=== PATIENT | male | born 1955 | race Caucasian/White ===

== ENCOUNTER 2017-04-12 07:21 | Emergency (ER) | payer OTHER ==
[2017-04-12] MEDS ORDERED: HYDROmorphone 2 MG/ML Syringe IM ONE (07:58)
[2017-04-12] MEDS ORDERED: HYDROmorphone 2 MG/ML Syringe ONE (07:59)
--- NOTE | 2017-04-12 08:05 | EDM.PDOC ---
ED HPI GENERAL MEDICAL PROBLEM - General Stated Complaint: INJURED KNEE Time Seen by Provider: 04/12/17 07:30 Source of Information: Reports: Patient History Limitations: Reports: No Limitations - History of Present Illness INITIAL COMMENTS - FREE TEXT/NARRATIVE: According to patient he claims that yesterday afternoon he was at the [employer] visiting his mother who is legally blind. She was tripping and loosing balance, pt tried to stop her fall and he landed on his left knee and hurt his knee. He was able to walk on it and went home and iced it. When he woke up in the morning he noticed swelling of his left knee and more stiffness. Rates his pain at 10/10.Hurts to walk, but can weight bear. He claims the pain is standing and burning type in the anterior knee. No locking of the knee. No other complaints. Pt take Xarelto and Aspirin. Onset Date: 04/11/17 Onset Time: 12:00 Duration: Getting Worse Location: Reports: Other (left knee) Quality: Reports: Ache, Burning Severity: Severe Improves with: Reports: Cold Therapy, Immobilization Worsens with: Reports: Movement Associated Symptoms: Denies: Confusion, Chest Pain, Headaches, Loss of Appetite , Nausea/Vomiting, Rash, Shortness of Breath - Related Data Allergies Allergy/AdvReac Type Severity Reaction Status Date / Time No Known Allergies Allergy Verified 04/12/17 08:17 ED ROS GENERAL - Review of Systems Review Of Systems: See Below Constitutional: Denies: Fever, Chills HEENT: Denies: Rhinitis, Sinus Problem Respiratory: Denies: Cough, Sputum Cardiovascular: Denies: Chest Pain, Lightheadedness GI/Abdominal: Denies: Nausea, Vomiting : Denies: Dysuria, Flank Pain Musculoskeletal: Reports: Joint Pain, Joint Swelling. Denies: Back Pain, Muscle Pain Skin: Reports: Bruising. Denies: Pruritis, Rash Neurological: Denies: Headache, Numbness, Paresthesia ED EXAM, GENERAL - Physical Exam Exam: See Below Exam Limited By: No Limitations General Appearance: Alert, WD/WN, No Apparent Distress Eye Exam: Bilateral Eye: EOMI, PERRL Ears: Normal External Exam, Normal Canal, Hearing Grossly Normal, Normal TMs Nose: Normal Inspection, Normal Mucosa, No Blood Throat/Mouth: Normal Inspection, Normal Lips, Normal Teeth, Normal Gums, Normal Oropharynx, Normal Voice, No Airway Compromise Head: Atraumatic, Normocephalic Neck: Normal Inspection, Supple, Non-Tender, Full Range of Motion Respiratory/Chest: No Respiratory Distress, Lungs Clear, Normal Breath Sounds, No Accessory Muscle Use, Chest Non-Tender Cardiovascular: Normal Peripheral Pulses, Regular Rate, Rhythm, No Edema, No Gallop, No JVD, No Murmur, No Rub Extremities: Other (Left knee: there is superficial skin bruising of the knee over the patella, there is burising of the skin all around patella and over the lateral asect of theknee and the distal aspect of the knee. There is lot of adipose tissue over lapping around the knee fom obesity. Skin is tense. Pt is very tender to skin palpation around the knee.Good FLexion an extension of the knee. Able to weight jose eduardo and walk with minimal discomfort. Tenderness is more with palpation.) Course - Vital Signs Text/Narrative:: Pt has developed a large skin and soft tissue bleed from the fall, which is secondary to his Aspirin and xarelto. His Knee xray appears normal other than severe degenerative changes, there is questionable superior pole of patellar osteophytic fracture, but most of patient tenderness is in the patellar ligament region distally. I have empirically placed patient in knee splint.for now until final radiology read is available. The bruising has stretched the skin and causing the burning and stinging pain in the knee. I have reassured patient , advised intermittent cold for 10-15 minutes every 2-3 hrs. Vicodin 1-2 tablet every 6 hrs as needed. Vicodin can cause constipation advised stool softeners daily. the bruise will spread around the knee and also leg and might turn the leg black and blue in the next week. The bruise should resolve in 2-3 wks time and pain should gradually improve. He will need evaluation for his severe osteoarthritis, might be candidate for replacement. Advised to followup in clinic on friday. - Orders/Labs/Meds Orders: Active Orders 24 hr Category Date Time Status Knee 3V Lt [CR] Stat Exams 04/12/17 07:56 Ordered Meds: Medications Discontinued Medications Generic Name Dose Route Start Last Admin Trade Name Freq PRN Reason Stop Dose Admin Hydromorphone HCl Confirm 04/12/17 07:59 04/12/17 08:13 Dilaudid Administered 04/12/17 08:00 2 mg Dose Administration 2 mg .ROUTE .STK-MED ONE Hydromorphone HCl 1 mg 04/12/17 07:58 Dilaudid IM 04/12/17 07:59 ONETIME ONE Departure - Departure Time of Disposition: 08:40 Disposition: Home, Self-Care 01 Clinical Impression: Left knee injury - Discharge Information Additional Instructions: Pt has developed a large skin and soft tissue bleed from the fall, which is secondary to his Aspirin and xarelto. His Knee xray appears normal other than severe degenerative changes, there is questionable superior pole of patellar osteophytic fracture, but most of patient tenderness is in the patellar ligament region distally. I have empirically placed patient in knee splint.for now until final radiology read is available. The bruising has stretched the skin and causing the burning and stinging pain in the knee. I have reassured patient , advised intermittent cold for 10-15 minutes every 2-3 hrs. Vicodin 1-2 tablet every 6 hrs as needed. Vicodin can cause constipation advised stool softeners daily. the bruise will spread around the knee and also leg and might turn the leg black and blue in the next week. The bruise should resolve in 2-3 wks time and pain should gradually improve. He will need evaluation for his sevee osteoarthritis, might be candidate for replacement. Advised to followup in clinic on friday. I - Problem List & Annotations (1) Left knee injury SNOMED Code(s): 071155540 Code(s): S89.92XA - UNSPECIFIED INJURY OF LEFT LOWER LEG, INITIAL ENCOUNTER Status: Acute Current Visit: Yes - Problem List Review Problem List Initiated/Reviewed/Updated: Yes - My Orders Last 24 Hours: My Active Orders 04/12/17 07:56 Knee 3V Lt [CR] Stat - Assessment/Plan Last 24 Hours: My Active Orders 04/12/17 07:56 Knee 3V Lt [CR] Stat Assessment:: Left knee injury with bruising with questionable superior pole of patellar osteophytic fracture Plan: Pt has developed a large skin and soft tissue bleed from the fall, which is secondary to his Aspirin and xarelto. His Knee xray appears normal other than severe degenerative changes, there is questionable superior pole of patellar osteophytic fracture, but most of patient tenderness is in the patellar ligament region distally. I have empirically placed patient in knee splint.for now until final radiology read is available. The bruising has stretched the skin and causing the burning and stinging pain in the knee. I have reassured patient , advised intermittent cold for 10-15 minutes every 2-3 hrs. Vicodin 1-2 tablet every 6 hrs as needed. Vicodin can cause constipation advised stool softeners daily. the bruise will spread around the knee and also leg and might turn the leg black and blue in the next week. The bruise should resolve in 2-3 wks time and pain should gradually improve. He will need evaluation for his severe osteoarthritis, might be candidate for replacement. Advised to followup in clinic on friday.
[2017-04-12 09:58] VITALS: BP 142/78
--- NOTE | 2017-04-14 00:13 | CR ---
DATE OF SERVICE: 04/12/2017 CLINICAL DATA: Left knee injury. LEFT KNEE There are tricompartment osteoarthritic changes of the knee joint with moderate narrowing of the medial compartment joint space. There is a lucency through the base of an osteophyte at the upper pole of the patella consistent with a fracture. It is not displaced. No other fractures. No lytic or blastic bone lesions. There is a small joint effusion. [id number] [facility]
== END 2017-04-12 09:05 | disposition home or self-care (01) ==
LOC: LB.ED 07:21
DX: S80.02XA Contusion of left knee, initial encounter (principal); W01.0XXA Fall on same level from slipping, tripping and stumbling without subsequent striking against object, initial encounter
CPT/HCPCS: 73562; 96372; 99283; J1170

== ENCOUNTER 2019-09-02 09:27 | Inpatient (IN) | payer MEDICARE ==
[2019-09-02] MEDS ORDERED: Calcium Carbonate 500 MG Tab.Chew PO PRN (11:35)
[2019-09-02] MEDS ORDERED: Sodium Chloride 0.9% 10 ML Syringe FLUSH PRN (11:45)
[2019-09-02] MEDS ORDERED: cefTRIAXone 1 GM in Sodium Chloride 0.9% 50 ML IV SCH (11:45)
[2019-09-02] MEDS ORDERED: Azithromycin 500 MG in Sodium Chloride 0.9% 250 ML IV SCH (11:45)
--- NOTE | 2019-09-02 11:45 | PCM.HP.2 ---
H&P History of Present Illness - General Date of Service: 09/02/19 Admit Problem/Dx: Admission Diagnosis/Problem Admission Diagnosis/Problem Cellulitis of left lower extremity Source of Information: Patient History Limitations: Reports: No Limitations - History of Present Illness Initial Comments - Free Text/Narative: This is a 64yo M here for failed outpatient treatment of left lower leg cellulitis and pneumonia. He notes the leg getting worse and persistent symptoms of chest congestion, cough and shortness of breath on exertion. He is on Xarelto for A-trial fibrillation. Patient is afebrile and ambulatory. Onset of Symptoms: Reports: Gradual Duration of Symptoms: Reports: Day(s):, Getting Worse Location: Reports: Chest, Lower Extremity, Left Quality: Reports: Ache, Pressure Severity: Moderate Improves with: Reports: None Worsens with: Reports: Movement Associated Symptoms: Reports: Cough, Shortness of Breath Left Lower Leg Pain Score (Numeric/FACES): 6 - Related Data Allergies/Adverse Reactions: Allergies Allergy/AdvReac Type Severity Reaction Status Date / Time No Known Allergies Allergy Verified 04/12/17 08:17 Home Medications: Home Meds Aspirin [Mirtha Chewable] 81 mg PO DAILY 04/12/17 [History] Calcium Citrate/Vitamin D2 [Fredy-Citrate Plus Vitamin D Tab] 1 each PO DAILY [History] Diazepam [Valium] 5 mg PO ASDIRECTED PRN 04/12/17 [History] Omeprazole Magnesium [Prilosec Otc] 20 mg PO DAILY 04/12/17 [History] Rivaroxaban [Xarelto] 20 mg PO DAILY 04/12/17 [History] atorvaSTATin Calcium [Atorvastatin Calcium] 80 mg PO DAILY 04/12/17 [History] dilTIAZem HCl [Diltiazem 24Hr ER (LA)] 180 mg PO DAILY 04/12/17 [History] H&P Review of Systems - Review of Systems: Review Of Systems: ROS reveals no pertinent complaints other than HPI. Exam - Exam Exam: See Below - Exam General: Alert, Oriented, Cooperative HEENT: PERRLA, Conjunctiva Clear, EACs Clear, EOMI, Hearing Intact, Mucosa Moist & [place], Nares Patent, Normal Nasal Septum Neck: Supple, Trachea Midline Lungs: Decreased Breath Sounds, Rhonchi Cardiovascular: Regular Rate, Regular Rhythm GI/Abdominal Exam: Normal Bowel Sounds, Soft, Non-Tender Back Exam: Normal Inspection Extremities: Pedal Edema, Leg Pain, Redness, Other (Left leg swelling erythema ) Skin: Warm, Intact Neuro Extensive - Mental Status: Alert, Oriented x3, Normal Mood/Affect - Patient Data Lab Results Last 24 hrs: Laboratory Results - last 24 hr 09/02/19 Range/Units 11:15 WBC 20.2 H* D (4.0-11.0) K/uL RBC 3.24 L (4.50-6.50) M/uL Hgb 10.8 L (13.0-18.0) g/dL Hct 32.6 L (40.0-54.0) % MCV 101 H (76-96) fL MCH 33.3 H (27.0-32.0) pg MCHC 33.1 (31.0-35.0) g/dL RDW 13.6 (11.0-16.0) % Plt Count 200 (150-400) K/uL MPV 9.7 (6.0-10.0) fL Neut % (Auto) 91.5 H (45.0-70.0) % Lymph % (Auto) 3.2 L (20.0-40.0) % Casey % (Auto) 4.9 (3.0-10.0) % Eos % (Auto) 0.3 L (1.0-5.0) % Baso % (Auto) 0.1 (0.0-0.5) % Neut # (Auto) 18.47 H (2.00-7.50) K/uL Lymph # (Auto) 0.65 L (1.50-4.00) K/uL Casey # (Auto) 1.00 H (0.20-0.80) K/uL Eos # (Auto) 0.06 (0.04-0.40) K/uL Baso # (Auto) 0.03 (0.02-0.10) K/uL Result Diagrams: 09/05/19 06:30 09/05/19 06:30 - Problem List (1) Cellulitis of left leg SNOMED Code(s): 469546546 ICD Code: L03.116 - CELLULITIS OF LEFT LOWER LIMB Status: Acute Priority : High (2) Pneumonia SNOMED Code(s): 147109680 ICD Code: J18.9 - PNEUMONIA, UNSPECIFIED ORGANISM Status: Suspected Priority: High Qualifiers: Pneumonia type: due to unspecified organism Laterality: unspecified laterality Lung location: lower lobe of lung Qualified Code(s): J18.1 - Lobar pneumonia, unspecified organism (3) Atrial fibrillation SNOMED Code(s): 77683874 ICD Code: I48.91 - UNSPECIFIED ATRIAL FIBRILLATION Status: Acute (4) Cardiomyopathy SNOMED Code(s): 95564667 ICD Code: I42.9 - CARDIOMYOPATHY, UNSPECIFIED Status: Acute (5) Prostate cancer SNOMED Code(s): 589484660 ICD Code: C61 - MALIGNANT NEOPLASM OF PROSTATE Status: Acute (6) HTN (hypertension) SNOMED Code(s): 73007167 ICD Code: I10 - ESSENTIAL (PRIMARY) HYPERTENSION Status: Acute (7) Hyperlipidemia SNOMED Code(s): 76872529 ICD Code: E78.5 - HYPERLIPIDEMIA, UNSPECIFIED Status: Acute (8) CAD (coronary artery disease) SNOMED Code(s): 72824129 ICD Code: I25.10 - ATHSCL HEART DISEASE OF [place] CORONARY ARTERY W/O ANG PCTRS Status: Acute (9) GERD (gastroesophageal reflux disease) SNOMED Code(s): 959501352 ICD Code: K21.9 - GASTRO-ESOPHAGEAL REFLUX DISEASE WITHOUT ESOPHAGITIS Status: Acute (10) Anxiety SNOMED Code(s): 71338344 ICD Code: F41.9 - ANXIETY DISORDER, UNSPECIFIED Status: Acute Problem List Initiated/Reviewed/Updated: Yes Orders Last 24hrs: Active Orders 24 hr Category Date Time Status Patient Status [ADT] Routine ADT 09/02/19 11:35 Ordered Oxygen Therapy [RC] PRN Care 09/02/19 11:35 Ordered Up ad Bobbi [RC] ASDIRECTED Care 09/02/19 11:35 Ordered Vital Signs [RC] Q4H Care 09/02/19 11:35 Ordered Regular Diet [DIET] Diet 09/02/19 Dinner Ordered Chest 2V [CR] Routine Exams 09/02/19 Ordered VL Duplex Lwr Ext Veins Ltd Lt [US] Routine Exams 09/02/19 Taken BASIC METABOLIC PANEL,BMP [CHEM] AM Lab 09/03/19 05:11 Ordered BASIC METABOLIC PANEL,BMP [CHEM] AM Lab 09/04/19 05:11 Ordered BASIC METABOLIC PANEL,BMP [CHEM] AM Lab 09/05/19 05:11 Ordered BASIC METABOLIC PANEL,BMP [CHEM] Routine Lab 09/02/19 11:15 Received CBC WITH AUTO DIFF [HEME] AM Lab 09/03/19 05:11 Ordered CBC WITH AUTO DIFF [HEME] AM Lab 09/04/19 05:11 Ordered CBC WITH AUTO DIFF [HEME] AM Lab 09/05/19 05:11 Ordered CULTURE BLOOD [BC] Routine Lab 09/02/19 11:37 Ordered CULTURE BLOOD [BC] Routine Lab 09/02/19 11:52 Ordered Calcium Carbonate [Tums] Med 09/02/19 11:35 Ordered 500 mg PO Q4H PRN Nicotine [Habitrol] Med 09/02/19 11:45 Ordered 21 mg TRDERM DAILY Resuscitation Status Routine Resus Stat 09/02/19 11:35 Ordered Medication Orders Calcium Carbonate/Glycine (Tums) 500 mg PO Q4H PRN PRN Reason: Indigestion Nicotine (Habitrol) 21 mg TRDERM DAILY BLANCA Assessment/Plan Comment:: Patient admitted for failed outpatient oral antibiotics treatment for left lower leg cellulitis. He has suspected concurrent pneumonia. Patient to be place on parenteral antibiotics and f/u labs in am. Blood cultures done and pending. Started on Rocephin and Azithromycin for Pneumonia and we will also f/u CBC for cellulitis. Repeat labs in AM and f/u. Monitor oxygen saturation due to decreased saturation and the need for 2L NC.
[2019-09-02] MEDS: cefTRIAXone 1 GM in Sodium Chloride 0.9% 50 ML IV SCH (14:04)
[2019-09-02] MEDS ORDERED: traMADol 50 MG Tab ONE (14:15)
[2019-09-02] MEDS ORDERED: Nicotine 21 MG/24 Hr Patch ONE (14:15)
[2019-09-02] MEDS: Nicotine 21 MG/24 Hr Patch TRDERM SCH (14:18)
[2019-09-02] MEDS: traMADol 50 MG Tab PO PRN (14:24)
[2019-09-02] MEDS: Azithromycin 500 MG in Sodium Chloride 0.9% 250 ML IV SCH (14:25)
--- NOTE | 2019-09-02 15:16 | US ---
DATE OF SERVICE: 09/02/2019 CLINICAL DATA: Cellulitis of unspecified part of limb,Shortness of breath LEFT LEG VENOUS DOPPLER: Negative for DVT. There is an elongated cystic structure in the popliteal fossa consistent with a Dobbins's cyst. It measures greater than 3 cm in its maximum dimension. [id number] [facility]
[2019-09-02] MEDS ORDERED: Sodium Chloride 0.9% 1,000 ML IV ONE (15:20)
--- NOTE | 2019-09-02 15:32 | CR ---
DATE OF SERVICE: 09/02/19 CLINICAL DATA: Shortness of breath PA AND LATERAL CHEST: Comparison is made to a prior exam dated 11/10/12. The patient has taken a poor inspiration. The heart is enlarged. The aorta is ectatic. There is prominence of the ascending aorta on the frontal view suggesting the possibility of aortic valve disease. There are mild atelectatic changes in the left lung base. The lungs are otherwise clear. No pneumothorax. No pleural effusions. [id number] [facility]
[2019-09-02] MEDS: Sodium Chloride 0.9% 1,000 ML IV SCH (16:25)
[2019-09-02] MEDS ORDERED: Rivaroxaban 10 MG Tab PO SCH (18:00)
[2019-09-02] MEDS: FLECAINIDE ACETATE 150 MG PO SCH (20:44)
[2019-09-03] MEDS: Sodium Chloride 0.9% 1,000 ML IV SCH (02:17)
[2019-09-03] MEDS: traMADol 50 MG Tab PO PRN ×2 (05:09→16:42)
[2019-09-03] MEDS: Omeprazole 20 MG Cap.CR PO SCH (06:12)
[2019-09-03] MEDS ORDERED: Non-Formulary Medication 1 Each (Omeprazole Magnesium [Prilosec Otc] 20 MG) PO SCH (08:00)
[2019-09-03] MEDS ORDERED: CALCIUM CITRATE PO SCH (08:00)
[2019-09-03] MEDS ORDERED: VITAMIN D2 PO SCH (08:00)
[2019-09-03] MEDS ORDERED: [UNRECOGNIZED DRUG - OTHER] PO SCH (08:00)
[2019-09-03] MEDS ORDERED: DILTIAZEM HCL 180 MG PO SCH (08:00)
[2019-09-03] MEDS: Calcium Carbonate/Vitamin D3 1500 MG-400 Units Tab PO SCH (08:13)
[2019-09-03] MEDS: Diltiazem 180 MG Cap.CD PO SCH (08:13)
[2019-09-03] MEDS: Aspirin 81 MG Tab.Chew PO SCH (08:13)
[2019-09-03] MEDS: Furosemide 20 MG Tab PO SCH (08:13)
[2019-09-03] MEDS: atorvaSTATin 80 MG Tab PO SCH (08:13)
[2019-09-03] MEDS: Tamsulosin 0.4 MG Cap.ER PO SCH (08:13)
[2019-09-03] MEDS: FLECAINIDE ACETATE 150 MG PO SCH ×2 (08:14→19:35)
[2019-09-03] MEDS ORDERED: Nicotine 21 MG/24 Hr Patch ONE (08:26)
--- NOTE | 2019-09-03 08:54 | PCM.PN ---
- General Info Date of Service: 09/03/19 Admission Dx/Problem (Free Text): Admission Diagnosis/Problem Admission Diagnosis/Problem Cellulitis of left lower extremity and pneumonia Subjective Update: Pt states he is feeling some better. States his oxygen level did decrease yesterday and needed to be on the oxygen. Shortness of breath with exertion. Reports up to bathroom every 2 hours to void. Reports left lower leg is painful and was too uncomfortable to stay at home with this. He states the swelling is some better to lower right leg and improving. Thankful that U/S result of no DVT, but allison's cyst. Functional Status: Reports: Pain Controlled, Tolerating Diet, Urinating, Incentive Spirometry - Review of Systems General: Reports: Weakness. Denies: Fever HEENT: Reports: No Symptoms Pulmonary: Denies: Pleuritic Chest Pain, Sputum, Wheezing Cardiovascular: Reports: Dyspnea on Exertion, Edema. Denies: Chest Pain, Palpitations Gastrointestinal: Denies: Abdominal Pain, Decreased Appetite, Nausea, Vomiting Genitourinary: Reports: Frequency. Denies: Burning, Pain Musculoskeletal: Reports: Leg Pain Skin: Reports: Other (weeping left lower extremity) Neurological: Reports: No Symptoms Psychiatric: Reports: No Symptoms - Patient Data Vitals - Most Recent: Last Vital Signs Temp 97.7 F 09/03/19 08:05 Pulse 75 09/03/19 08:13 Resp 18 09/03/19 08:05 BP 142/58 H 09/03/19 08:13 Pulse Ox 99 09/03/19 08:05 Weight - Most Recent: 352 lb I&O - Last 24 Hours: Intake & Output 09/02/19 09/03/19 09/03/19 22:59 06:59 14:59 Intake Total 1074 2200 Output Total 400 870 100 Balance 674 1330 -100 Lab Results Last 24 Hours: Laboratory Results - last 24 hr 09/02/19 09/02/19 09/02/19 Range/Units 08:05 11:15 11:15 WBC 20.2 H* D (4.0-11.0) K/uL RBC 3.24 L (4.50-6.50) M/uL Hgb 10.8 L (13.0-18.0) g/dL Hct 32.6 L (40.0-54.0) % MCV 101 H (76-96) fL MCH 33.3 H (27.0-32.0) pg MCHC 33.1 (31.0-35.0) g/dL RDW 13.6 (11.0-16.0) % Plt Count 200 (150-400) K/uL MPV 9.7 (6.0-10.0) fL Neut % (Auto) 91.5 H (45.0-70.0) % Lymph % (Auto) 3.2 L (20.0-40.0) % [place] % (Auto) 4.9 (3.0-10.0) % Eos % (Auto) 0.3 L (1.0-5.0) % Baso % (Auto) 0.1 (0.0-0.5) % Neut # (Auto) 18.47 H (2.00-7.50) K/uL Lymph # (Auto) 0.65 L (1.50-4.00) K/uL [place] # (Auto) 1.00 H (0.20-0.80) K/uL Eos # (Auto) 0.06 (0.04-0.40) K/uL Baso # (Auto) 0.03 (0.02-0.10) K/uL Sodium 133 L (136-145) mmol/L Potassium 3.8 (3.5-5.1) mmol/L Chloride 99 (98-107) mmol/L Carbon Dioxide 25.6 (21.0-32.0) mmol/L Anion Gap 12.2 (5.0-15.0) mmol/L BUN 14 D (8-26) mg/dL Creatinine 1.47 H (0.70-1.30) mg/dL Est Cr Clr Drug Dosing TNP Estimated GFR (MDRD) 48 L (>60) MLS/MIN BUN/Creatinine Ratio 9.5 (6-25) Glucose 137 H (74-100) mg/dL Lactic Acid (0.90-1.70) mmol/L Calcium 8.4 L (8.5-10.1) mg/dL Urine Color Yellow Urine Appearance Clear (CLEAR) Urine pH 6.0 (5.0-8.0) Ur Specific [place] >= 1.030 (1.003-1.030) Urine Protein 100 H (NEGATIVE) mg/dL Urine Glucose (UA) Negative (NEGATIVE) mg/dL Urine Ketones Negative (NEGATIVE) mg/dL Urine Occult Blood Trace-intact H (NEGATIVE) Urine Nitrite Negative (NEGATIVE) Urine Bilirubin Negative (NEGATIVE) Urine Urobilinogen 4.0 H (0.2-1.0) E.U./dL Ur Leukocyte Esterase Negative (NEGATIVE) 09/02/19 Range/Units 13:12 WBC (4.0-11.0) K/uL RBC (4.50-6.50) M/uL Hgb (13.0-18.0) g/dL Hct (40.0-54.0) % MCV (76-96) fL MCH (27.0-32.0) pg MCHC (31.0-35.0) g/dL RDW (11.0-16.0) % Plt Count (150-400) K/uL MPV (6.0-10.0) fL Neut % (Auto) (45.0-70.0) % Lymph % (Auto) (20.0-40.0) % [place] % (Auto) (3.0-10.0) % Eos % (Auto) (1.0-5.0) % Baso % (Auto) (0.0-0.5) % Neut # (Auto) (2.00-7.50) K/uL Lymph # (Auto) (1.50-4.00) K/uL [place] # (Auto) (0.20-0.80) K/uL Eos # (Auto) (0.04-0.40) K/uL Baso # (Auto) (0.02-0.10) K/uL Sodium (136-145) mmol/L Potassium (3.5-5.1) mmol/L Chloride (98-107) mmol/L Carbon Dioxide (21.0-32.0) mmol/L Anion Gap (5.0-15.0) mmol/L BUN (8-26) mg/dL Creatinine (0.70-1.30) mg/dL Est Cr Clr Drug Dosing Estimated GFR (MDRD) (>60) MLS/MIN BUN/Creatinine Ratio (6-25) Glucose (74-100) mg/dL Lactic Acid 1.79 H (0.90-1.70) mmol/L Calcium (8.5-10.1) mg/dL Urine Color Urine Appearance (CLEAR) Urine pH (5.0-8.0) Ur Specific [place] (1.003-1.030) Urine Protein (NEGATIVE) mg/dL Urine Glucose (UA) (NEGATIVE) mg/dL Urine Ketones (NEGATIVE) mg/dL Urine Occult Blood (NEGATIVE) Urine Nitrite (NEGATIVE) Urine Bilirubin (NEGATIVE) Urine Urobilinogen (0.2-1.0) E.U./dL Ur Leukocyte Esterase (NEGATIVE) Med Orders - Current: Current Medications Aspirin (Aspirin) 81 mg PO DAILY [facility] Last Admin: 09/03/19 08:13 Dose: 81 mg Atorvastatin Calcium (Lipitor) 80 mg PO DAILY [facility] Last Admin: 09/03/19 08:13 Dose: 80 mg Calcium Carbonate (Caltrate 600+D 1500 Mg-400 Units) 1 tab PO DAILY [facility] Last Admin: 09/03/19 08:13 Dose: 1 tab Calcium Carbonate/Glycine (Tums) 500 mg PO Q4H PRN PRN Reason: Indigestion Diltiazem HCl (Cardizem Cd) 180 mg PO DAILY [facility] Last Admin: 09/03/19 08:13 Dose: 180 mg Furosemide (Lasix) 20 mg PO DAILY [facility] Last Admin: 09/03/19 08:13 Dose: 20 mg Ceftriaxone Sodium 1 gm/ (Sodium Chloride) 50 mls @ 200 mls/hr IV Q24H [facility] Last Admin: 09/02/19 14:04 Dose: 200 mls/hr Azithromycin 500 mg/ Sodium (Chloride) 250 mls @ 250 mls/hr IV Q24H [facility] Last Admin: 09/02/19 14:25 Dose: 250 mls/hr Sodium Chloride (Normal Saline) 1,000 mls @ 100 mls/hr IV ASDIRECTED [facility] Last Admin: 09/03/19 02:17 Dose: 100 mls/hr Nicotine (Habitrol) 21 mg TRDERM DAILY [facility] Last Admin: 09/02/19 14:18 Dose: 21 mg Non-Formulary Medication (Flecainide Acetate [Flecainide Acetate]) 150 mg PO BID [facility] Last Admin: 09/03/19 08:14 Dose: 150 mg Omeprazole (Omeprazole) 20 mg PO ACBREAKFAST [facility] Last Admin: 09/03/19 06:12 Dose: 20 mg Rivaroxaban (Xarelto) 20 mg PO WITHDINNER [facility] Last Admin: 09/02/19 18:38 Dose: Not Given Sodium Chloride (Saline Flush) 10 ml FLUSH ASDIRECTED PRN PRN Reason: Keep Vein Open Sodium Chloride (Saline Flush) 10 ml FLUSH ASDIRECTED PRN PRN Reason: Keep Vein Open Tamsulosin HCl (Flomax) 0.4 mg PO DAILY [facility] Last Admin: 09/03/19 08:13 Dose: 0.4 mg Tramadol HCl (Ultram) 50 mg PO Q6H PRN PRN Reason: Pain Last Admin: 09/03/19 05:09 Dose: 50 mg Discontinued Medications Azithromycin 500 mg/ Sodium (Chloride) 250 mls @ 250 mls/hr IV Q24H [facility] Last Admin: 09/02/19 16:31 Dose: Not Given Ceftriaxone Sodium 1 gm/ (Sodium Chloride) 50 mls @ 200 mls/hr IV Q24H [facility] Last Admin: 09/02/19 16:31 Dose: Not Given Sodium Chloride (Normal Saline) 1,000 mls @ 999 mls/hr IV .BOLUS ONE Stop: 09/02/19 16:20 Last Admin: 09/02/19 15:20 Dose: 999 mls/hr Nicotine (Habitrol) Confirm Administered Dose 21 mg .ROUTE .STK-MED ONE Stop: 09/02/19 14:16 Last Admin: 09/02/19 14:27 Dose: Not Given Nicotine (Habitrol) Confirm Administered Dose 21 mg .ROUTE .STK-MED ONE Stop: 09/03/19 08:27 Tramadol HCl (Ultram) Confirm Administered Dose 50 mg .ROUTE .STK-MED ONE Stop: 09/02/19 14:16 Last Admin: 09/02/19 16:21 Dose: Not Given - Exam Quality Assessment: Supplemental Oxygen. No: Urine Catheter General: Alert, Oriented, Cooperative, No Acute Distress HEENT: Mucous Membr. Moist/[place] Neck: Supple, Trachea Midline. No: Lymphadenopathy Lungs: Decreased Breath Sounds, Crackles (bases bilateral, faint crackles. Breath sound distant with body habitus.) Cardiovascular: Regular Rate, Regular Rhythm GI/Abdominal Exam: Soft, Non-Tender Back Exam: Normal Inspection Extremities: Leg Pain, Limited Range of Motion, Increased Warmth, Redness, Other (edema and erythema to left lower leg from foot extending to near the knee , Marker line was drawn on leg and erythema has decreased.) Skin: Warm, Other (clear fluid weeping from top of foot and skin is taut with the swelling.) Neurological: No New Focal Deficit Psy/Mental Status: Alert, Normal Affect, Normal Mood - Problem List & Annotations (1) Cellulitis of left leg SNOMED Code(s): 699482694 Code(s): L03.116 - CELLULITIS OF LEFT LOWER LIMB Status: Acute Priority: High Current Visit: Yes (2) Pneumonia SNOMED Code(s): 543835766 Code(s): J18.9 - PNEUMONIA, UNSPECIFIED ORGANISM Status: Suspected Priority: High Current Visit: Yes Qualifiers: Pneumonia type: due to unspecified organism Laterality: unspecified laterality Lung location: lower lobe of lung Qualified Code(s): J18.1 - Lobar pneumonia, unspecified organism (3) Anxiety SNOMED Code(s): 31096154 Code(s): F41.9 - ANXIETY DISORDER, UNSPECIFIED Status: Acute Current Visit: Yes (4) Atrial fibrillation SNOMED Code(s): 98806171 Code(s): I48.91 - UNSPECIFIED ATRIAL FIBRILLATION Status: Acute Current Visit: Yes (5) CAD (coronary artery disease) SNOMED Code(s): 04123533 Code(s): I25.10 - ATHSCL HEART DISEASE OF [place] CORONARY ARTERY W/O ANG PCTRS Status: Acute Current Visit: Yes (6) Cardiomyopathy SNOMED Code(s): 09917760 Code(s): I42.9 - CARDIOMYOPATHY, UNSPECIFIED Status: Acute Current Visit : Yes (7) GERD (gastroesophageal reflux disease) SNOMED Code(s): 419710250 Code(s): K21.9 - GASTRO-ESOPHAGEAL REFLUX DISEASE WITHOUT ESOPHAGITIS Status: Acute Current Visit: Yes (8) HTN (hypertension) SNOMED Code(s): 95823518 Code(s): I10 - ESSENTIAL (PRIMARY) HYPERTENSION Status: Acute Current Visit: Yes (9) Hyperlipidemia SNOMED Code(s): 60119934 Code(s): E78.5 - HYPERLIPIDEMIA, UNSPECIFIED Status: Acute Current Visit : Yes (10) Prostate cancer SNOMED Code(s): 689063269 Code(s): C61 - MALIGNANT NEOPLASM OF PROSTATE Status: Acute Current Visit : Yes - Problem List Review Problem List Initiated/Reviewed/Updated: Yes - Plan Plan:: 09-02-2019 Patient admitted for failed outpatient oral antibiotics treatment for left lower leg cellulitis. He has suspected concurrent pneumonia. Patient to be place on parenteral antibiotics and f/u labs in am. 09-03-2019 Leukocytosis has improved from 20 to 15 today. Swelling and erythema has decreased some to left lower leg. Recommend to keep legs elevated. Mati wraps to lower extremities to assist with decrease in swelling. Pneumonia: Continue with IV antibiotic, start saline lock as pt is taking adequate fluids. Slightly dehydrated on admit. Taper off of oxygen as tolerated with SpO2> 92%. Daily labs ordered. for CBC and BMP. Pt has significant History of CAD, cardiomyopathy, HTN, HLD, GERD, anxiety, and atrial fibrillation with anticoagulant therapy. Continue to monitor VS closely q 4 hour, and monitor for any signs of sepsis or respiratory distress. Pain to left leg: Medication with Vicoden as needed for relief of pain.
[2019-09-03] MEDS: Rivaroxaban 10 MG Tab PO SCH (09:01)
[2019-09-03] MEDS: Nicotine 21 MG/24 Hr Patch TRDERM SCH (09:02)
[2019-09-03] MEDS ORDERED: Triamcinolone Acetonide 0.1% Crm 15 GM Tube TOP SCH (10:00)
[2019-09-03] MEDS: Triamcinolone Acetonide 0.1% Crm 30 GM Tube TOP SCH ×2 (10:50→19:46)
[2019-09-03] MEDS ORDERED: Sodium Chloride 0.9% 20 ML SDV FLUSH PRN (10:52)
[2019-09-03] MEDS: cefTRIAXone 1 GM in Sodium Chloride 0.9% 50 ML IV SCH (13:40)
[2019-09-03] MEDS: Azithromycin 500 MG in Sodium Chloride 0.9% 250 ML IV SCH (14:26)
[2019-09-03] MEDS: LORazepam 1 MG Tab PO PRN (19:35)
[2019-09-03] MEDS: Sodium Chloride 0.9% 10 ML Syringe FLUSH PRN (19:45)
[2019-09-04] MEDS: traMADol 50 MG Tab PO PRN ×4 (00:02→19:18)
[2019-09-04] MEDS: Omeprazole 20 MG Cap.CR PO SCH (06:40)
--- NOTE | 2019-09-04 07:58 | PCM.PN ---
- General Info Date of Service: 09/04/19 Subjective Update: Pt claims he is feeling better. He has been coughing a lot more today. No fever or chills. sputum is clear. Has been tolerating oral diet. He does c/o left leg pain but better today. No complaints from patient. Functional Status: Reports: Pain Controlled, Tolerating Diet, Ambulating, Urinating - Review of Systems General: Denies: Fever, Weakness, Malaise HEENT: Denies: Sinus Congestion, Rhinitis Pulmonary: Reports: Cough, Sputum. Denies: Shortness of Breath, Pleuritic Chest Pain, Wheezing Cardiovascular: Denies: Chest Pain, Lightheadedness Gastrointestinal: Denies: Abdominal Pain, Nausea, Vomiting Genitourinary: Denies: Dysuria, Frequency Musculoskeletal: Reports: Leg Pain. Denies: Joint Pain, Joint Swelling Skin: Reports: Rash - Patient Data Vitals - Most Recent: Last Vital Signs Temp 98 F 09/04/19 04:00 Pulse 80 09/04/19 04:00 Resp 19 09/04/19 04:00 BP 149/88 H 09/04/19 04:00 Pulse Ox 96 09/04/19 04:00 Weight - Most Recent: 159.665 kg I&O - Last 24 Hours: Intake & Output 09/03/19 09/04/19 09/04/19 22:59 06:59 14:59 Intake Total 600 500 Balance 600 500 Lab Results Last 24 Hours: Laboratory Results - last 24 hr 09/02/19 09/03/19 09/03/19 Range/Units 08:05 08:05 08:05 WBC 15.6 H D (4.0-11.0) K/uL RBC 2.87 L (4.50-6.50) M/uL Hgb 9.6 L (13.0-18.0) g/dL Hct 29.3 L (40.0-54.0) % MCV 102 H (76-96) fL MCH 33.4 H (27.0-32.0) pg MCHC 32.8 (31.0-35.0) g/dL RDW 13.6 (11.0-16.0) % Plt Count 198 (150-400) K/uL MPV 10.0 (6.0-10.0) fL Neut % (Auto) 86.2 H (45.0-70.0) % Lymph % (Auto) 5.1 L (20.0-40.0) % [place] % (Auto) 7.1 (3.0-10.0) % Eos % (Auto) 1.3 (1.0-5.0) % Baso % (Auto) 0.3 (0.0-0.5) % Neut # (Auto) 13.48 H (2.00-7.50) K/uL Lymph # (Auto) 0.79 L (1.50-4.00) K/uL [place] # (Auto) 1.11 H (0.20-0.80) K/uL Eos # (Auto) 0.20 (0.04-0.40) K/uL Baso # (Auto) 0.05 (0.02-0.10) K/uL Sodium 134 L (136-145) mmol/L Potassium 3.9 (3.5-5.1) mmol/L Chloride 101 (98-107) mmol/L Carbon Dioxide 24.2 (21.0-32.0) mmol/L Anion Gap 12.7 (5.0-15.0) mmol/L BUN 13 (8-26) mg/dL Creatinine 1.19 (0.70-1.30) mg/dL Est Cr Clr Drug Dosing 67.93 mL/min Estimated GFR (MDRD) > 60 (>60) MLS/MIN BUN/Creatinine Ratio 10.9 (6-25) Glucose 111 H (74-100) mg/dL Calcium 8.4 L (8.5-10.1) mg/dL Urine Color Yellow Urine Appearance Clear (CLEAR) Urine pH 6.0 (5.0-8.0) Ur Specific [place] >= 1.030 (1.003-1.030) Urine Protein 100 H (NEGATIVE) mg/dL Urine Glucose (UA) Negative (NEGATIVE) mg/dL Urine Ketones Negative (NEGATIVE) mg/dL Urine Occult Blood Trace-intact H (NEGATIVE) Urine Nitrite Negative (NEGATIVE) Urine Bilirubin Negative (NEGATIVE) Urine Urobilinogen 4.0 H (0.2-1.0) E.U./dL Ur Leukocyte Esterase Negative (NEGATIVE) Urine RBC 0-5 H /HPF Urine WBC 0-5 H /HPF Ur Squamous Epith Cells Few /HPF Urine Bacteria Not seen /HPF [place] Results Last 24 Hours: Microbiology 09/02/19 13:00 Aerobic Blood Culture - Preliminary Blood - Arm, Right NO GROWTH AFTER 1 DAY Anaerobic Blood Culture - Preliminary NO GROWTH AFTER 1 DAY 09/02/19 12:20 Aerobic Blood Culture - Preliminary Blood - Arm, Left NO GROWTH AFTER 1 DAY Anaerobic Blood Culture - Preliminary NO GROWTH AFTER 1 DAY 09/02/19 14:02 MRSA Surveillance Culture - Final Nares, Unspecified NO MRSA ISOLATED Med Orders - Current: Current Medications Aspirin (Aspirin) 81 mg PO DAILY [facility] Last Admin: 09/03/19 08:13 Dose: 81 mg Atorvastatin Calcium (Lipitor) 80 mg PO DAILY [facility] Last Admin: 09/03/19 08:13 Dose: 80 mg Calcium Carbonate (Caltrate 600+D 1500 Mg-400 Units) 1 tab PO DAILY [facility] Last Admin: 09/03/19 08:13 Dose: 1 tab Calcium Carbonate/Glycine (Tums) 500 mg PO Q4H PRN PRN Reason: Indigestion Diltiazem HCl (Cardizem Cd) 180 mg PO DAILY [facility] Last Admin: 09/03/19 08:13 Dose: 180 mg Furosemide (Lasix) 20 mg PO DAILY [facility] Last Admin: 09/03/19 08:13 Dose: 20 mg Ceftriaxone Sodium 1 gm/ (Sodium Chloride) 50 mls @ 200 mls/hr IV Q24H [facility] Last Admin: 09/03/19 13:40 Dose: 200 mls/hr Azithromycin 500 mg/ Sodium (Chloride) 250 mls @ 250 mls/hr IV Q24H [facility] Last Admin: 09/03/19 14:26 Dose: 250 mls/hr Lorazepam (Ativan) 1 mg PO BID PRN PRN Reason: Anxiety Last Admin: 09/03/19 19:35 Dose: 1 mg Nicotine (Habitrol) 21 mg TRDERM DAILY [facility] Last Admin: 09/03/19 09:02 Dose: Not Given Non-Formulary Medication (Flecainide Acetate [Flecainide Acetate]) 150 mg PO BID [facility] Last Admin: 09/03/19 19:35 Dose: 150 mg Omeprazole (Omeprazole) 20 mg PO ACBREAKFAST [facility] Last Admin: 09/04/19 06:40 Dose: 20 mg Rivaroxaban (Xarelto) 20 mg PO QAM [facility] Last Admin: 09/03/19 09:01 Dose: 20 mg Sodium Chloride (Saline Flush) 10 ml FLUSH ASDIRECTED PRN PRN Reason: Keep Vein Open Last Admin: 09/03/19 19:45 Dose: 10 ml Tamsulosin HCl (Flomax) 0.4 mg PO DAILY [facility] Last Admin: 09/03/19 08:13 Dose: 0.4 mg Tramadol HCl (Ultram) 50 mg PO Q6H PRN PRN Reason: Pain Last Admin: 09/04/19 06:42 Dose: 50 mg Triamcinolone Acetonide (Kenalog 0.1% Crm) 0 gm TOP BID [facility] Last Admin: 09/03/19 19:46 Dose: 2 applic Discontinued Medications Azithromycin 500 mg/ Sodium (Chloride) 250 mls @ 250 mls/hr IV Q24H [facility] Last Admin: 09/02/19 16:31 Dose: Not Given Ceftriaxone Sodium 1 gm/ (Sodium Chloride) 50 mls @ 200 mls/hr IV Q24H [facility] Last Admin: 09/02/19 16:31 Dose: Not Given Sodium Chloride (Normal Saline) 1,000 mls @ 999 mls/hr IV .BOLUS ONE Stop: 09/02/19 16:20 Last Admin: 09/02/19 15:20 Dose: 999 mls/hr Sodium Chloride (Normal Saline) 1,000 mls @ 100 mls/hr IV ASDIRECTED [facility] Last Admin: 09/03/19 02:17 Dose: 100 mls/hr Nicotine (Habitrol) Confirm Administered Dose 21 mg .ROUTE .STK-MED ONE Stop: 09/02/19 14:16 Last Admin: 09/02/19 14:27 Dose: Not Given Nicotine (Habitrol) Confirm Administered Dose 21 mg .ROUTE .STK-MED ONE Stop: 09/03/19 08:27 Last Admin: 09/03/19 14:41 Dose: 21 mg Rivaroxaban (Xarelto) 20 mg PO WITHDINNER [facility] Last Admin: 09/02/19 18:38 Dose: Not Given Sodium Chloride (Saline Flush) 10 ml FLUSH ASDIRECTED PRN PRN Reason: Keep Vein Open Sodium Chloride (Normal Saline) 10 ml FLUSH ASDIRECTED PRN PRN Reason: Keep Vein Open Tramadol HCl (Ultram) Confirm Administered Dose 50 mg .ROUTE .STK-MED ONE Stop: 09/02/19 14:16 Last Admin: 09/02/19 16:21 Dose: Not Given Triamcinolone Acetonide (Triamcinolone Acetonide 0.1% Crm) 0 gm TOP BID [facility] Last Admin: 09/03/19 10:17 Dose: Not Given - Exam General: Alert, Oriented HEENT: Pupils Equal, Pupils Reactive, EOMI, Mucous Membr. Moist/[place] Neck: Supple Lungs: Clear to Auscultation, Normal Respiratory Effort Cardiovascular: Regular Rate, Regular Rhythm GI/Abdominal Exam: Normal Bowel Sounds, Soft, Non-Tender, No Organomegaly, No Distention, No Abnormal Bruit, No Mass, Pelvis Stable Extremities: Other (left leg: the erythema is strating to shrink from the marked lines over the leg. The erythema is still warm and tender to palpation. No open wounds or drainage.) - Problem List & Annotations (1) Cellulitis of left leg SNOMED Code(s): 871456652 Code(s): L03.116 - CELLULITIS OF LEFT LOWER LIMB Status: Acute Priority: High Current Visit: Yes (2) Pneumonia SNOMED Code(s): 275741652 Code(s): J18.9 - PNEUMONIA, UNSPECIFIED ORGANISM Status: Suspected Priority: High Current Visit: Yes Qualifiers: Pneumonia type: due to unspecified organism Laterality: unspecified laterality Lung location: lower lobe of lung Qualified Code(s): J18.1 - Lobar pneumonia, unspecified organism - Problem List Review Problem List Initiated/Reviewed/Updated: Yes - Assessment Assessment:: Pneumonia-Stable Left leg cellulitis improving. - Plan Plan:: 09-02-2019 Patient admitted for failed outpatient oral antibiotics treatment for left lower leg cellulitis. He has suspected concurrent pneumonia. Patient to be place on parenteral antibiotics and f/u labs in am. 09-03-2019 Leukocytosis has improved from 20 to 15 today. Swelling and erythema has decreased some to left lower leg. Recommend to keep legs elevated. Mati wraps to lower extremities to assist with decrease in swelling. Pneumonia: Continue with IV antibiotic, start saline lock as pt is taking adequate fluids. Slightly dehydrated on admit. Taper off of oxygen as tolerated with SpO2> 92%. Daily labs ordered. for CBC and BMP. Pt has significant History of CAD, cardiomyopathy, HTN, HLD, GERD, anxiety, and atrial fibrillation with anticoagulant therapy. Continue to monitor VS closely q 4 hour, and monitor for any signs of sepsis or respiratory distress. Pain to left leg: Medication with Vicoden as needed for relief of pain. 09/04/19 pt claims he feels better. His cough has worsened, as the pneumonia is clearing. His white count is down to 12.4 today, improving. His left leg cellulitis appears to be improving. the erythema is shrinking. Advised patient to keep the left leg elevated. Continue Iv antibiotics.
[2019-09-04] MEDS: Aspirin 81 MG Tab.Chew PO SCH (08:01)
[2019-09-04] MEDS: Calcium Carbonate/Vitamin D3 1500 MG-400 Units Tab PO SCH (08:01)
[2019-09-04] MEDS: Tamsulosin 0.4 MG Cap.ER PO SCH (08:02)
[2019-09-04] MEDS: Rivaroxaban 10 MG Tab PO SCH (08:02)
[2019-09-04] MEDS: Diltiazem 180 MG Cap.CD PO SCH (08:02)
[2019-09-04] MEDS: atorvaSTATin 80 MG Tab PO SCH (08:02)
[2019-09-04] MEDS: Furosemide 20 MG Tab PO SCH (08:02)
[2019-09-04] MEDS: FLECAINIDE ACETATE 150 MG PO SCH ×2 (08:05→19:18)
[2019-09-04] MEDS: Triamcinolone Acetonide 0.1% Crm 30 GM Tube TOP SCH ×2 (08:05→19:34)
[2019-09-04] MEDS ORDERED: Nicotine 21 MG/24 Hr Patch ONE (09:10)
[2019-09-04] MEDS: Nicotine 21 MG/24 Hr Patch TRDERM SCH (09:25)
[2019-09-04] MEDS: cefTRIAXone 1 GM in Sodium Chloride 0.9% 50 ML IV SCH (13:15)
[2019-09-04] MEDS: Azithromycin 500 MG in Sodium Chloride 0.9% 250 ML IV SCH (14:05)
[2019-09-04] MEDS: LORazepam 1 MG Tab PO PRN ×2 (14:43→20:53)
[2019-09-04] MEDS: Sodium Chloride 0.9% 10 ML Syringe FLUSH PRN (19:21)
[2019-09-05] MEDS: Omeprazole 20 MG Cap.CR PO SCH (06:39)
[2019-09-05] MEDS ORDERED: Lactobacillus Acidophilus/Lactobacillus Sporogenes (Probiotic) Tab PO SCH (08:00)
[2019-09-05] MEDS: Aspirin 81 MG Tab.Chew PO SCH (08:39)
[2019-09-05] MEDS: Calcium Carbonate/Vitamin D3 1500 MG-400 Units Tab PO SCH (08:39)
[2019-09-05] MEDS: Nicotine 21 MG/24 Hr Patch TRDERM SCH (08:40)
[2019-09-05] MEDS: FLECAINIDE ACETATE 150 MG PO SCH (08:40)
[2019-09-05] MEDS: Tamsulosin 0.4 MG Cap.ER PO SCH (08:40)
[2019-09-05] MEDS: Triamcinolone Acetonide 0.1% Crm 30 GM Tube TOP SCH (08:41)
[2019-09-05] MEDS: Rivaroxaban 10 MG Tab PO SCH (08:42)
[2019-09-05] MEDS: atorvaSTATin 80 MG Tab PO SCH (08:42)
[2019-09-05] MEDS: Furosemide 20 MG Tab PO SCH (08:42)
[2019-09-05] MEDS: Diltiazem 180 MG Cap.CD PO SCH (08:48)
[2019-09-05] MEDS: Sodium Chloride 0.9% 10 ML Syringe FLUSH PRN (08:50)
[2019-09-05 08:51] VITALS: BP 142/62; PULSE 83
[2019-09-05] MEDS: traMADol 50 MG Tab PO PRN (12:16)
[2019-09-05] MEDS ORDERED: Azithromycin 250 MG Tab PO ONE (12:27)
--- NOTE | 2019-09-05 12:40 | PCM.DCSUM1 ---
Discharge Summary - Hospital Course Free Text/Narrative:: Pt was admitted to hospital for IV antibiotics for failed outpatient treatment of left leg cellulitis and pneumonia. Pt was started on Rocephin 1gm daily and azithromycin 500mg IV daily. Also patient's left leg swelling was controlled with kavitha wrap and elevation of the limb. Pt has remained afebrile all through the hospitalization. His white count of admission was 20.2 K which has gradually decreased from 15.4K to 12.4 to 10.2 K today. His renal functions have been stable. the redness over the left leg has improved. there is still redness but has started to shrink. Pain is under control. No skin break down. Also patient claims his breathing has improved. Still coughing. Now he has started to get productive clear sputum. Maintaining his SPO2 well on room air. As his white count is normal, he is afebrile and feeling better, will plan on discharge. Will continue azithromycin 250mg daily for next 3 days and Ceftin 500mg for next 7 days. Continue to apply kavitha wrap over the left leg and elevation. Followup in the clinic next week for recheck. HPI Initial Comments: Pt claims he has been feeling better. Has mild productive sputum, which has been clear. tolerating oral diet well. Brief History: Pt admitted to hospital for IV antibitocs therapy for failed outpatient care of pneumonia and left leg cellulitis. Kindly see H&P for details. Diagnosis: Stroke: No - Discharge Data Discharge Date: 09/05/19 Discharge Disposition: Home, Self-Care 01 Condition: Good - Referral to Home Health Primary Care Physician: PCP None - Discharge Diagnosis/Problem(s) (1) Cellulitis of left leg SNOMED Code(s): 842187559 ICD Code: L03.116 - CELLULITIS OF LEFT LOWER LIMB Status: Acute Priority : High Current Visit: Yes (2) Pneumonia SNOMED Code(s): 356592653 ICD Code: J18.9 - PNEUMONIA, UNSPECIFIED ORGANISM Status: Suspected Priority: High Current Visit: Yes Qualifiers: Pneumonia type: due to unspecified organism Laterality: unspecified laterality Lung location: lower lobe of lung Qualified Code(s): J18.1 - Lobar pneumonia, unspecified organism - Patient Instructions Diet: Heart Healthy Diet Fluid Restriction: 1500 mL Activity: As Tolerated Driving: May Drive Today - Discharge Plan *PRESCRIPTION DRUG MONITORING PROGRAM REVIEWED*: Not Applicable *COPY OF PRESCRIPTION DRUG MONITORING REPORT IN PATIENT CRISTAL: Not Applicable Home Medications: Home Meds Aspirin [Mirtha Chewable] 81 mg PO DAILY 04/12/17 [History] Calcium Citrate/Vitamin D2 [Fredy-Citrate Plus Vitamin D Tab] 1 each PO DAILY [History] Diazepam [Valium] 5 mg PO ASDIRECTED PRN 04/12/17 [History] Omeprazole Magnesium [Prilosec Otc] 20 mg PO DAILY 04/12/17 [History] Rivaroxaban [Xarelto] 20 mg PO DAILY 04/12/17 [History] atorvaSTATin Calcium [Atorvastatin Calcium] 80 mg PO DAILY 04/12/17 [History] dilTIAZem HCl [Diltiazem 24Hr ER (LA)] 180 mg PO DAILY 04/12/17 [History] - Discharge Summary/Plan Comment DC Time >30 min.: Yes Discharge Summary/Plan Comment: As his white count is normal, he is afebrile and feeling better, will plan on discharge. Will continue azithromycin 250mg daily for next 3 days and Ceftin 500mg for next 7 days. Continue to apply kavitha wrap over the left leg and elevation. Followup in the clinic next week for recheck. - General Info Date of Service: 09/05/19 Functional Status: Reports: Pain Controlled, Tolerating Diet, Ambulating, Urinating - Review of Systems General: Denies: Fever, Weakness, Fatigue HEENT: Denies: Sinus Congestion, Rhinitis Pulmonary: Reports: Cough, Sputum. Denies: Shortness of Breath, Hemoptysis Cardiovascular: Denies: Chest Pain, Lightheadedness Gastrointestinal: Denies: Abdominal Pain, Nausea, Vomiting Genitourinary: Denies: Dysuria, Frequency Musculoskeletal: Reports: Leg Pain Skin: Denies: Bruising, Pruritis, Rash - Patient Data Vitals - Most Recent: Last Vital Signs Temp 98.5 F 09/05/19 08:50 Pulse 83 09/05/19 08:50 Resp 20 09/05/19 08:50 BP 142/62 H 09/05/19 08:50 Pulse Ox 94 L 09/05/19 08:50 Weight - Most Recent: 156.489 kg I&O - Last 24 hours: Intake & Output 10/12/19 10/13/19 10/13/19 22:59 06:59 14:59 Intake Total 920 540 Balance 920 540 Lab Results - Last 24 hrs: Laboratory Results - last 24 hr 09/05/19 09/05/19 Range/Units 06:30 06:30 WBC 10.2 (4.0-11.0) K/uL RBC 3.11 L (4.50-6.50) M/uL Hgb 10.3 L (13.0-18.0) g/dL Hct 31.1 L (40.0-54.0) % MCV 100 H (76-96) fL MCH 33.1 H (27.0-32.0) pg MCHC 33.1 (31.0-35.0) g/dL RDW 13.6 (11.0-16.0) % Plt Count 288 (150-400) K/uL MPV 9.4 (6.0-10.0) fL Neut % (Auto) 79.8 H (45.0-70.0) % Lymph % (Auto) 7.6 L (20.0-40.0) % [place] % (Auto) 9.6 (3.0-10.0) % Eos % (Auto) 2.7 (1.0-5.0) % Baso % (Auto) 0.3 (0.0-0.5) % Neut # (Auto) 8.17 H (2.00-7.50) K/uL Lymph # (Auto) 0.78 L (1.50-4.00) K/uL [place] # (Auto) 0.98 H (0.20-0.80) K/uL Eos # (Auto) 0.28 (0.04-0.40) K/uL Baso # (Auto) 0.03 (0.02-0.10) K/uL Sodium 136 (136-145) mmol/L Potassium 3.9 (3.5-5.1) mmol/L Chloride 101 (98-107) mmol/L Carbon Dioxide 28.2 (21.0-32.0) mmol/L Anion Gap 10.7 (5.0-15.0) mmol/L BUN 10 (8-26) mg/dL Creatinine 0.99 (0.70-1.30) mg/dL Est Cr Clr Drug Dosing 81.65 mL/min Estimated GFR (MDRD) > 60 (>60) MLS/MIN BUN/Creatinine Ratio 10.1 (6-25) Glucose 117 H (74-100) mg/dL Calcium 8.3 L (8.5-10.1) mg/dL SURESH Results - Last 24 hrs: Microbiology 09/02/19 13:00 Aerobic Blood Culture - Preliminary Blood - Arm, Right NO GROWTH AFTER 2 DAYS Anaerobic Blood Culture - Preliminary NO GROWTH AFTER 2 DAYS 09/02/19 12:20 Aerobic Blood Culture - Preliminary Blood - Arm, Left NO GROWTH AFTER 2 DAYS Anaerobic Blood Culture - Preliminary NO GROWTH AFTER 2 DAYS Med Orders - Current: Current Medications Aspirin (Aspirin) 81 mg PO DAILY REPLACED BY [facility] Last Admin: 09/05/19 08:39 Dose: 81 mg Atorvastatin Calcium (Lipitor) 80 mg PO DAILY REPLACED BY [facility] Last Admin: 09/05/19 08:42 Dose: 80 mg Calcium Carbonate (Caltrate 600+D 1500 Mg-400 Units) 1 tab PO DAILY REPLACED BY [facility] Last Admin: 09/05/19 08:39 Dose: 1 tab Calcium Carbonate/Glycine (Tums) 500 mg PO Q4H PRN PRN Reason: Indigestion Diltiazem HCl (Cardizem Cd) 180 mg PO DAILY REPLACED BY [facility] Last Admin: 09/05/19 08:48 Dose: 180 mg Furosemide (Lasix) 20 mg PO DAILY REPLACED BY [facility] Last Admin: 09/05/19 08:42 Dose: 20 mg Ceftriaxone Sodium 1 gm/ (Sodium Chloride) 50 mls @ 200 mls/hr IV Q24H REPLACED BY [facility] Last Admin: 09/04/19 13:15 Dose: 200 mls/hr Azithromycin 500 mg/ Sodium (Chloride) 250 mls @ 250 mls/hr IV Q24H REPLACED BY [facility] Last Admin: 09/04/19 14:05 Dose: 250 mls/hr Lactobacillus Acidophilus (Acidolphilus Extra Strength) 1 tab PO BID@0800,1700 REPLACED BY [facility] Last Admin: 09/05/19 08:38 Dose: 1 tab Lorazepam (Ativan) 1 mg PO BID PRN PRN Reason: Anxiety Last Admin: 09/04/19 20:53 Dose: 1 mg Nicotine (Habitrol) 21 mg TRDERM DAILY REPLACED BY [facility] Last Admin: 09/05/19 08:40 Dose: Not Given Non-Formulary Medication (Flecainide Acetate [Flecainide Acetate]) 150 mg PO BID REPLACED BY [facility] Last Admin: 09/05/19 08:40 Dose: 150 mg Omeprazole (Omeprazole) 20 mg PO ACBREAKFAST REPLACED BY [facility] Last Admin: 09/05/19 06:39 Dose: 20 mg Rivaroxaban (Xarelto) 20 mg PO QAM REPLACED BY [facility] Last Admin: 09/05/19 08:42 Dose: 20 mg Sodium Chloride (Saline Flush) 10 ml FLUSH ASDIRECTED PRN PRN Reason: Keep Vein Open Last Admin: 09/04/19 19:21 Dose: 10 ml Tamsulosin HCl (Flomax) 0.4 mg PO DAILY REPLACED BY [facility] Last Admin: 09/05/19 08:40 Dose: 0.4 mg Tramadol HCl (Ultram) 50 mg PO Q6H PRN PRN Reason: Pain Last Admin: 09/05/19 12:16 Dose: 50 mg Triamcinolone Acetonide (Kenalog 0.1% Crm) 0 gm TOP BID REPLACED BY [facility] Last Admin: 09/05/19 08:41 Dose: 1 applic Discontinued Medications Azithromycin 500 mg/ Sodium (Chloride) 250 mls @ 250 mls/hr IV Q24H REPLACED BY [facility] Last Admin: 09/02/19 16:31 Dose: Not Given Ceftriaxone Sodium 1 gm/ (Sodium Chloride) 50 mls @ 200 mls/hr IV Q24H REPLACED BY [facility] Last Admin: 09/02/19 16:31 Dose: Not Given Sodium Chloride (Normal Saline) 1,000 mls @ 999 mls/hr IV .BOLUS ONE Stop: 09/02/19 16:20 Last Admin: 09/02/19 15:20 Dose: 999 mls/hr Sodium Chloride (Normal Saline) 1,000 mls @ 100 mls/hr IV ASDIRECTED REPLACED BY [facility] Last Admin: 09/03/19 02:17 Dose: 100 mls/hr Nicotine (Habitrol) Confirm Administered Dose 21 mg .ROUTE .STK-MED ONE Stop: 09/02/19 14:16 Last Admin: 09/02/19 14:27 Dose: Not Given Nicotine (Habitrol) Confirm Administered Dose 21 mg .ROUTE .STK-MED ONE Stop: 09/03/19 08:27 Last Admin: 09/03/19 14:41 Dose: 21 mg Nicotine (Habitrol) Confirm Administered Dose 21 mg .ROUTE .STK-MED ONE Stop: 09/04/19 09:11 Last Admin: 09/04/19 10:43 Dose: 21 mg Rivaroxaban (Xarelto) 20 mg PO WITHDINNER REPLACED BY [facility] Last Admin: 09/02/19 18:38 Dose: Not Given Sodium Chloride (Saline Flush) 10 ml FLUSH ASDIRECTED PRN PRN Reason: Keep Vein Open Sodium Chloride (Normal Saline) 10 ml FLUSH ASDIRECTED PRN PRN Reason: Keep Vein Open Tramadol HCl (Ultram) Confirm Administered Dose 50 mg .ROUTE .STK-MED ONE Stop: 09/02/19 14:16 Last Admin: 09/02/19 16:21 Dose: Not Given Triamcinolone Acetonide (Triamcinolone Acetonide 0.1% Crm) 0 gm TOP BID REPLACED BY [facility] Last Admin: 09/03/19 10:17 Dose: Not Given - Exam General: Reports: Alert, Oriented, Cooperative HEENT: Reports: Pupils Equal, Pupils Reactive, EOMI, Mucous Membr. Moist/[place] Neck: Reports: Supple Lungs: Reports: Decreased Breath Sounds, Rales (anterior chest) Cardiovascular: Reports: Regular Rate, Regular Rhythm GI/Abdominal Exam: Normal Bowel Sounds, Soft, Non-Tender, No Organomegaly, No Distention, No Abnormal Bruit, No Mass, Pelvis Stable Extremities: Normal Range of Motion, Non-Tender, Normal Capillary Refill, Other (left leg: The swelling over the leg has improved, also eryhema has shrunk down. Still has minimal tenderness over the leg.)
[2019-09-05] MEDS: cefTRIAXone 1 GM in Sodium Chloride 0.9% 50 ML IV SCH (13:01)
[2019-09-05] MEDS: Azithromycin 500 MG in Sodium Chloride 0.9% 250 ML IV SCH (13:02)
== END 2019-09-05 13:34 | disposition home or self-care (01) | DRG 602 ==
LOC: LB.US 09:27 → LB.MS 11:35
PROVIDERS: ADMIT Family Medicine; ATTEND Family Medicine
DX: L03.116 Cellulitis of left lower limb (principal); J18.1 Lobar pneumonia, unspecified organism; J18.9 Pneumonia, unspecified organism; I42.9 Cardiomyopathy, unspecified; I48.91 Unspecified atrial fibrillation; R05 Cough; C61 Malignant neoplasm of prostate; E78.5 Hyperlipidemia, unspecified; I10 Essential (primary) hypertension; K21.9 Gastro-esophageal reflux disease without esophagitis; F41.9 Anxiety disorder, unspecified; I25.10 Atherosclerotic heart disease of native coronary artery without angina pectoris; Z79.01 Long term (current) use of anticoagulants; Z79.82 Long term (current) use of aspirin; Z79.899 Other long term (current) drug therapy
CPT/HCPCS: 36415; 71046; 80048; 81001; 83605; 85025; 87040; 93971-LT; A9270-GY; J0456; J0696; J7030; J7050

== ENCOUNTER 2020-04-06 17:09 | Emergency (ER) | payer MEDICARE ==
[2020-04-06 17:41] VITALS: BP 134/73; PULSE 84
--- NOTE | 2020-04-07 14:05 | EDM.PDOC ---
ED HPI GENERAL MEDICAL PROBLEM - General Chief Complaint: Head Injury Stated Complaint: HEAD Time Seen by Provider: 04/06/20 18:20 Source of Information: Reports: Patient History Limitations: Reports: No Limitations - History of Present Illness INITIAL COMMENTS - FREE TEXT/NARRATIVE: Patient report hitting his head after falling off toilet 1 week ago after a BM. Has felt off balance and has had mild headache at times. Patient is on Eliquis. Called his usual MD and was advised to come to ED for evaluation for concussion. Reports sleeping increased amounts and is concerned about BP being too low at times. Takes Flomax 0.8 mg in amd Onset Date: 03/30/20 Duration: Week(s): (one week) Location: Reports: Head (dull intermittent gneralized headache) Severity: Mild Worsens with: Reports: Movement (Worse with standing up) - Related Data Allergies Allergy/AdvReac Type Severity Reaction Status Date / Time No Known Allergies Allergy Verified 04/12/17 08:17 Home Meds: Home Meds Aspirin [Mirtha Chewable] 81 mg PO DAILY 04/12/17 [History] Calcium Citrate/Vitamin D2 [Fredy-Citrate Plus Vitamin D Tab] 1 each PO DAILY [History] Omeprazole Magnesium [Prilosec Otc] 20 mg PO DAILY 04/12/17 [History] Rivaroxaban [Xarelto] 20 mg PO DAILY 04/12/17 [History] atorvaSTATin Calcium [Atorvastatin Calcium] 80 mg PO DAILY 04/12/17 [History] diazePAM [Valium] 5 mg PO ASDIRECTED PRN 04/12/17 [History] dilTIAZem HCL [Diltiazem 24Hr ER ([place])] 180 mg PO DAILY 04/12/17 [History] Potassium Chloride 10 meq PO DAILY #30 cap.er 04/06/20 [Rx] Past Medical History HEENT History: Reports: Cataract Cardiovascular History: Reports: Afib, Hypertension, SOB on Exertion Neurological History: Reports: Concussion Other Neuro History: unfollowed head injuries related to hockey Endocrine/Metabolic History: Reports: Obesity/BMI 30+ Oncologic (Cancer) History: Reports: Pancreatic Other Oncologic History: TURP and radiation Dermatologic History: Reports: Cellulitis, Eczema, Psoriasis - Infectious Disease History Infectious Disease History: Reports: Influenza, Rubella - Past Surgical History HEENT Surgical History: Reports: Cataract Surgery Cardiovascular Surgical History: Reports: None Endocrine Surgical History: Reports: None Neurological Surgical History: Reports: None Social & Family History - Family History Family Medical History: Noncontributory - Tobacco Use Smoking Status *Q: Current Every Day Smoker - Caffeine Use Caffeine Use: Reports: Coffee Other Caffeine Use: 3 cups/day ED ROS GENERAL - Review of Systems Review Of Systems: See Below Constitutional: Denies: Fever, Chills, Weakness HEENT: Denies: Nosebleed, Nose Pain, Vertigo Respiratory: Denies: Shortness of Breath, Wheezing, Cough Cardiovascular: Reports: No Symptoms Endocrine: Reports: Fatigue GI/Abdominal: Reports: No Symptoms : Denies: Flank Pain, Frequency, Urinary Retention Musculoskeletal: Denies: Neck Pain, Shoulder Pain Neurological: Reports: Dizziness, Gait Disturbance. Denies: Confusion Psychiatric: Reports: No Symptoms ED EXAM, HEAD INJURY - Physical Exam Exam: See Below Exam Limited By: No Limitations General Appearance: Alert, No Apparent Distress, Obese Head: Atraumatic, Normocephalic. No: Scalp Lacerations, Scalp Swelling, Scalp Hematoma, Scalp Tenderness Nexus Criteria: No: Posterior, Midline Cervical Tenderness, Evidence of Intoxication, Altered Level of Consciousness, Focal Neurological Deficit, Painful Distraction Injuries Eyes: Bilateral Eye: EOMI Ears: Normal External Exam, Normal Canal, Normal TMs. No: Hearing Loss, TM Erythema, TM Blood Nose: Normal Inspection. No: No Blood, Nasal Discharge Throat/Mouth: Normal Inspection, Normal Lips, Normal Voice Neck: Non-Tender, Full Range of Motion, Normal Alignment, Normal Inspection Respiratory: No Respiratory Distress, Lungs Clear, Normal Breath Sounds, No Accessory Muscle Use, Chest Non-Tender Cardiovascular: Normal Peripheral Pulses, Regular Rate, Rhythm, No Edema, No Murmur GI/Abdominal Exam: Soft, Non-Tender Back Exam: Normal Inspection. No: CVA Tenderness (R), CVA Tenderness (L), Paraspinal Tenderness, Vertebral Tenderness Extremities: Normal Inspection, Normal Range of Motion, Non-Tender Neurologic: polisher apprentice II-XII nml As Tested, No Motor/Sensory Deficits, Alert, Normal Mood/Affect, Oriented x 3. No: Abnormal Cerebellar Tests, Abnormal polisher apprentice II-XII, Abnormal Gait, Aphasia, Facial Droop, Motor Weakness Skin: Normal Color, Warm/Dry - [place] Coma Score Best Eye Response ([place]): (4) Open Spontaneously Best Verbal Response ([place]): (5) Oriented Best Motor Response ([place]): (6) Obeys Commands [place] Total: 15 Course - Vital Signs Text/Narrative:: CT of head without contrast scan obtained and negative for intracranial bleeding or fx. Last Recorded V/S: Last Vital Signs Temp 98.5 F 04/06/20 18:18 Pulse 84 04/06/20 18:18 Resp 16 04/06/20 18:18 BP 134/73 04/06/20 18:18 Pulse Ox 99 04/06/20 18:18 - Orders/Labs/Meds Labs: Laboratory Tests 04/06/20 04/06/20 Range/Units 18:55 18:55 WBC 13.4 H D (4.0-11.0) K/uL RBC 4.32 L (4.50-6.50) M/uL Hgb 13.7 (13.0-18.0) g/dL Hct 38.8 L (40.0-54.0) % MCV 90 (76-96) fL MCH 31.7 (27.0-32.0) pg MCHC 35.3 H (31.0-35.0) g/dL RDW 14.2 (11.0-16.0) % Plt Count 344 D (150-400) K/uL MPV 9.0 (6.0-10.0) fL Neut % (Auto) 72.5 H (45.0-70.0) % Lymph % (Auto) 14.6 L (20.0-40.0) % [place] % (Auto) 10.5 H (3.0-10.0) % Eos % (Auto) 2.0 (1.0-5.0) % Baso % (Auto) 0.4 (0.0-0.5) % Neut # (Auto) 9.72 H (2.00-7.50) K/uL Lymph # (Auto) 1.95 (1.50-4.00) K/uL [place] # (Auto) 1.40 H (0.20-0.80) K/uL Eos # (Auto) 0.27 (0.04-0.40) K/uL Baso # (Auto) 0.05 (0.02-0.10) K/uL Sodium 131 L (136-145) mmol/L Potassium 3.2 L D (3.5-5.1) mmol/L Chloride 90 L (98-107) mmol/L Carbon Dioxide 31.5 D (21.0-32.0) mmol/L Anion Gap 12.7 (5.0-15.0) mmol/L BUN 26 (8-26) mg/dL Creatinine 1.73 H (0.70-1.30) mg/dL Est Cr Clr Drug Dosing 46.10 mL/min Estimated GFR (MDRD) 40 L (>60) MLS/MIN BUN/Creatinine Ratio 15.0 (6-25) Glucose 158 H D (74-100) mg/dL Calcium 9.4 (8.5-10.1) mg/dL Departure - Departure Time of Disposition: 19:20 Disposition: Home, Self-Care 01 Condition: Good Clinical Impression: Concussion injury of brain - Discharge Information *PRESCRIPTION DRUG MONITORING PROGRAM REVIEWED*: Not Applicable *COPY OF PRESCRIPTION DRUG MONITORING REPORT IN PATIENT CRISTAL: Not Applicable Prescriptions: Potassium Chloride 10 meq PO DAILY #30 cap.er Instructions: Concussion, Adult, [id number] Referrals: PCP,None [Primary Care Provider] - Forms: ED Department Discharge Care Plan Goals: Take flomax as prescribed for 1 month then follow up with primary provider. Return with any questions or concerns. Decrease dose to 0.4 mg daily in pm Discuss with primary provider. Start potassium 10 po daily. Possible adverse reaction to flomax along wist recent head trauma /concussion . Will decrease flomax to 0.4 from 0.8 mg daily.Discuss change at follow up with PCP Sepsis Event Note - Evaluation Sepsis Screening Result: No Definite Risk - Focused Exam Date Exam was Performed: 04/07/20 Time Exam was Performed: 19:13
--- NOTE | 2020-04-10 08:55 | CT ---
DATE OF SERVICE: 04/06/20 CLINICAL DATA: Closed head injury UNENHANCED BRAIN CT: Multislice acquisition through the brain without IV contrast was performed. No priors. There is mild atrophy. There are periventricular lucencies bilaterally consistent with small vessel ischemic change. No masses or mass effect. No intracranial hemorrhage. No evidence of acute or subacute infarct. No fractures. IMPRESSION: No acute intracranial abnormalities. [id number] [facility]
== END 2020-04-06 18:55 | disposition home or self-care (01) ==
LOC: LB.ED 17:09
DX: S06.0X9A Concussion with loss of consciousness of unspecified duration, initial encounter (principal); I48.91 Unspecified atrial fibrillation; I10 Essential (primary) hypertension; E66.9 Obesity, unspecified; Z68.42 Body mass index [BMI] 45.0-49.9, adult; F17.200 Nicotine dependence, unspecified, uncomplicated; Z79.01 Long term (current) use of anticoagulants; Z79.82 Long term (current) use of aspirin; W18.11XA Fall from or off toilet without subsequent striking against object, initial encounter
CPT/HCPCS: 36415; 70450; 80048; 85025; 99284-25

== ENCOUNTER 2020-09-20 08:49 | Emergency (ER) | payer MEDICARE ==
[2020-09-20] MEDS ORDERED: Sodium Chloride 0.9% 500 ML IV ONE (09:14)
[2020-09-20] MEDS ORDERED: Diltiazem 25 MG/5 ML SDV IVPUSH ONE ×2 (09:14→09:50)
[2020-09-20 10:32] VITALS: BP 95/69; PULSE 109
--- NOTE | 2020-09-21 05:22 | ER ---
HPI: A 65-year-old male here with complaints of dizziness. He actually became dizzy enough to fall down. He had come to town to get oil changed on his truck this morning. He got out of his pickup and was walking into the garage where they were going to do the oil change when his symptoms developed. The patient denies any chest pain or trouble breathing. He states that he feels fine. He did not take any of his medications this morning because he felt he did not have time to get into town on time for his appointment [facility]. The patient states that he is not dizzy anymore, that only lasted for a few minutes, but he became weak enough that he fell to his knees and had to holler for help. The patient states this has happened before. He does have history of atrial fibrillation and cardiomyopathy. The patient denies ever having a heart attack or needing any stents. Again, the patient states he did not take his medications today which include; flecainide; Flomax; lansoprazole; Neurontin; aspirin; Eliquis, which he takes b.i.d.; Effexor; Lasix, he takes 40 mg b.i.d.; Valium p.r.n.; diltiazem 180 mg daily; atorvastatin 80 mg a day; potassium chloride 10 mEq daily. OBJECTIVE: GENERAL APPEARANCE: The patient is awake, he is very talkative, teasing the nurses. VITAL SIGNS: Reviewed. The initial blood pressure 119/64, pulse 116, respirations 17, O2 sats 97%. He is afebrile. HEENT: Oral mucous membranes are slightly dry. Tonsils are not enlarged or injected. Pharynx not inflamed. NECK: Supple. LUNGS: Clear with slightly reduced air exchange throughout the lung benoit. CARDIAC: Heart sounds distinct. There is a slightly irregular rate noted. SKIN: Warm and dry. ABDOMEN: Soft, protuberant, nontender to palpation. Bowel sounds are present. EXTREMITIES: There is minimal lower extremity edema of both ankles today. IMAGING: Lab x-ray and EKG shows atrial fibrillation with a ventricular rate in the 130s. We hooked the patient up to the monitor and he is ranging from 120-140. Chest x-ray is unremarkable. LABORATORY DATA: Labs include a CBC showing a normal white count. Hemoglobin is normal. metabolic panel shows a potassium level of 3.4 just slightly low, creatinine 2.0, BUN 27, blood glucose 150. Troponin is negative. Diagnosis: Atrial fibrillation with a rapid ventricular response. ED COURSE: An IV was started and the patient was given Cardizem 20 mg IV. We also started a small bolus of 500 mL of normal saline. We did give the patient a second dose of Cardizem 25 mg after approximately 15-20 minutes and this brought his rate down. He has been ranging between upper 90s to 120. The patient is asymptomatic. He has been very talkative and pleasant and denies any symptoms of chest discomfort, trouble breathing, or dizziness. At this point, we had the patient go for a walk across the emergency room and back. The patient did become slightly dizzy. At the end of the walk, he sat down on the bed and within about 15 seconds, the dizziness seemed to resolve. The patient was then able to sit in a wheelchair. DIAGNOSIS: Atrial fibrillation. TREATMENT PLAN: I advised the patient that he needs to get on his medications and he should not be skipping them. He is on multiple medications that would help this. The patient is going to be discharged to home with a hazardous materials driver. He is stable. He is anticoagulated and he has the right medications at home. The patient is to go home, rest today, take his medications as directed, and lets see how he feels over the next 24 hours. I think he should be improving. Follow up should be tomorrow if he feels his condition is not any better, or of course, if anything gets worse, he is to call the emergency room. If things are improving, a recheck should be either tomorrow or Friday in the clinic. The patient agrees with the treatment plan. He feels comfortable with this. He even states that he did have an ablation therapy about 5 years ago to treat atrial fibrillation and it has not really given him any trouble since then. The procedure was not done in this area. CRS/MODL /[id number]
--- NOTE | 2020-09-22 12:02 | CR ---
CLINICAL DATA: Dizziness. AP CHEST, 20 SEPTEMBER 2020: Comparison is made to a prior exam dated 02 September 2019. The heart size is at the upper limits of normal. The lungs are clear. No pneumothorax. No pleural effusions. There is narrowing of the subacromial space on the left, suggesting a chronic rotator cuff tendon injury. No evidence of acute intrathoracic disease. Job: [id number] MTDD
== END 2020-09-20 11:00 | disposition home or self-care (01) ==
LOC: LB.ED 08:49
DX: I48.20 Chronic atrial fibrillation, unspecified (principal); I42.9 Cardiomyopathy, unspecified
CPT/HCPCS: 36415; 71045; 80053; 84484; 85025; 93005; 96374; 99284; 99284-25; A0425; A0429; J3490; J7040

== ENCOUNTER 2020-10-04 18:46 | Emergency (ER) | payer MEDICARE ==
--- NOTE | 2020-10-04 20:24 | EDM.PDOC ---
ED HPI GENERAL MEDICAL PROBLEM - General Chief Complaint: General Stated Complaint: UNRESPONSIVE, BREATHING Time Seen by Provider: 10/04/20 20:00 Source of Information: Reports: Patient, EMS History Limitations: Reports: No Limitations - History of Present Illness INITIAL COMMENTS - FREE TEXT/NARRATIVE: Patient is a 65 y/o male who presents with dizziness, ZELAYA, and syncopal episode. He states this has been going on for a few weeks and will "pass out" while standing or ambulating. Once he passes out, he quickly wakes up afterwards and feels better. His nephew found him slumped on the floor and it took a couple of minutes before he was talking and responsive. EMS states there was no post- ictal when they arrived and no history of seizures. Patient denies chest pain, SOB, abdominal pain, N/V/D, or constipation. PMHx significant for ablation 6 years ago and AFIB (on eliquis for). - Related Data Allergies Allergy/AdvReac Type Severity Reaction Status Date / Time No Known Allergies Allergy Verified 09/20/20 09:43 Home Meds: Home Meds Aspirin [Mirtha Chewable] 81 mg PO DAILY 04/12/17 [History] Calcium Citrate/Vitamin D2 [Fredy-Citrate Plus Vitamin D Tab] 1 each PO DAILY 04/12/17 [History] Omeprazole Magnesium [Prilosec Otc] 20 mg PO DAILY 04/12/17 [History] Rivaroxaban [Xarelto] 20 mg PO DAILY 04/12/17 [History] atorvaSTATin Calcium [Atorvastatin Calcium] 80 mg PO DAILY 04/12/17 [History] diazePAM [Valium] 5 mg PO ASDIRECTED PRN 04/12/17 [History] dilTIAZem HCL [Diltiazem 24Hr ER (LA)] 180 mg PO DAILY 04/12/17 [History] Potassium Chloride 10 meq PO DAILY #30 cap.er 04/06/20 [Rx] Apixaban [Eliquis] 5 mg PO BID 09/20/20 [History] Flecainide [Tambocor] 150 mg PO Q12H 09/20/20 [History] Furosemide [Lasix] 40 mg PO BID 09/20/20 [History] Gabapentin [Neurontin] 100 mg PO TID 09/20/20 [History] Lansoprazole 15 mg PO DAILY 09/20/20 [History] Tamsulosin HCl [Flomax] 0.4 mg PO DAILY 09/20/20 [History] Venlafaxine [Effexor] 100 mg PO DAILY 09/20/20 [History] metOLazone [Zaroxolyn] 2.5 mg PO DAILY 09/20/20 [History] Past Medical History HEENT History: Reports: Cataract Cardiovascular History: Reports: Afib, Hypertension, SOB on Exertion Neurological History: Reports: Concussion Other Neuro History: unfollowed head injuries related to hockey Endocrine/Metabolic History: Reports: Obesity/BMI 30+ Oncologic (Cancer) History: Reports: Pancreatic Other Oncologic History: TURP and radiation Dermatologic History: Reports: Cellulitis, Eczema, Psoriasis - Infectious Disease History Infectious Disease History: Reports: Influenza, Rubella - Past Surgical History HEENT Surgical History: Reports: Cataract Surgery Cardiovascular Surgical History: Reports: None Endocrine Surgical History: Reports: None Neurological Surgical History: Reports: None Social & Family History - Family History Family Medical History: No Pertinent Family History - Caffeine Use Caffeine Use: Reports: None Other Caffeine Use: 3 cups/day ED ROS GENERAL - Review of Systems Review Of Systems: See Below Constitutional: Reports: No Symptoms HEENT: Reports: No Symptoms Respiratory: Reports: No Symptoms Cardiovascular: Reports: No Symptoms GI/Abdominal: Reports: No Symptoms Musculoskeletal: Reports: No Symptoms Skin: Reports: No Symptoms Neurological: Reports: Dizziness, Headache, Syncope Psychiatric: Reports: No Symptoms ED EXAM, GENERAL - Physical Exam Exam: See Below Exam Limited By: No Limitations General Appearance: Alert, No Apparent Distress Eye Exam: Bilateral Eye: EOMI, Normal Inspection, Nystagmus, PERRL Head: Atraumatic, Normocephalic Neck: Normal Inspection, Supple, Non-Tender, Full Range of Motion Respiratory/Chest: No Respiratory Distress, Lungs Clear, Normal Breath Sounds, No Accessory Muscle Use, Chest Non-Tender Cardiovascular: Normal Peripheral Pulses, No Edema, No Murmur, Tachycardia Peripheral Pulses: 2+: Radial (L), Radial (R) GI/Abdominal: Normal Bowel Sounds, Soft, Non-Tender, No Distention Extremities: Normal Inspection, Normal Range of Motion, Non-Tender, No Pedal Edema, Normal Capillary Refill Neurological: Alert, Oriented, CN II-XII Intact, Normal Cognition, No Motor/Sensory Deficits Psychiatric: Normal Affect, Normal Mood Skin Exam: Warm, Dry, Intact, Normal Color, No Rash #1 Interpretation EKG Date: 10/04/20 Time: 21:05 Rhythm: Other (with rapid ventricular response) Rate (Beats/Min): 106 [place]: LAD-Left [place] Deviation P-Wave: Absent QRS: Normal ST-T: Normal QT: Normal Comparison: No Change Course - Vital Signs Text/Narrative:: Patient refusing CT head multiple times. Unable to rule out mass or bleed. Hypokalemia (patient given potassium orally and IV). Leukocytosis (which has been elevated in the past). Patient with orthostatic hypotension. Given another NS bolus and this improved and patient not symptomatic. He wants to go home and all other labs are unremarkable. Will follow up outpatient to get labs re-checked. Last Recorded V/S: Last Vital Signs Temp 36.6 C 10/04/20 20:15 Pulse 85 10/04/20 20:15 Resp 20 10/04/20 20:15 BP 117/79 10/04/20 20:15 Pulse Ox 96 10/04/20 20:15 - Orders/Labs/Meds Orders: Active Orders 24 hr Category Date Time Status EKG Documentation Completion [RC] ASDIRECTED Care 10/04/20 20:16 Active DRUG SCREEN, URINE [URCHEM] Stat Lab 10/04/20 20:17 Ordered UA RFX SURESH AND CULT IF INDIC [URIN] Stat Lab 10/04/20 20:17 Ordered Potassium Chloride Riders [KCl 10 MEQ in Water 50 ML] Med 10/04/20 22:00 Active 50 ml IV Q1H Medication Orders Potassium Chloride (Kcl 10 Meq In Water 50 Ml) 50 mls @ 50 mls/hr IV Q1H BLANCA Stop: 10/04/20 23:59 Last Admin: 10/04/20 22:28 Dose: 50 mls/hr Documented by: [id number] Infusion: 10/04/20 22:28 Dose: 50 mls/hr Documented by: [id number] Admin: 10/04/20 21:32 Dose: 50 mls/hr Documented by: [email or web address] Labs: Laboratory Tests 10/04/20 10/04/20 10/04/20 Range/Units 20:20 21:00 21:00 WBC 12.9 H D (4.0-11.0) K/uL RBC 3.92 L (4.50-6.50) M/uL Hgb 12.7 L (13.0-18.0) g/dL Hct 36.9 L (40.0-54.0) % MCV 94 (76-96) fL MCH 32.4 H (27.0-32.0) pg MCHC 34.4 (31.0-35.0) g/dL RDW 13.4 (11.0-16.0) % Plt Count 348 (150-400) K/uL MPV 9.4 (6.0-10.0) fL Neut % (Auto) 72.5 H (45.0-70.0) % Lymph % (Auto) 16.0 L (20.0-40.0) % [place] % (Auto) 7.8 (3.0-10.0) % Eos % (Auto) 3.3 (1.0-5.0) % Baso % (Auto) 0.4 (0.0-0.5) % Neut # (Auto) 9.35 H (2.00-7.50) K/uL Lymph # (Auto) 2.06 (1.50-4.00) K/uL [place] # (Auto) 1.00 H (0.20-0.80) K/uL Eos # (Auto) 0.43 H (0.04-0.40) K/uL Baso # (Auto) 0.05 (0.02-0.10) K/uL PT 10.3 (9.0-11.5) sec INR 1.0 (1.0-3.5) Sodium 133 L (136-145) mmol/L Potassium 2.8 L* (3.5-5.1) mmol/L Chloride 93 L (98-107) mmol/L Carbon Dioxide 29.9 (21.0-32.0) mmol/L Anion Gap 12.9 (5.0-15.0) mmol/L BUN 26 (8-26) mg/dL Creatinine 1.89 H (0.70-1.30) mg/dL Est Cr Clr Drug Dosing 41.57 mL/min Estimated GFR (MDRD) 36 L (>60) MLS/MIN BUN/Creatinine Ratio 13.8 (6-25) Glucose 137 H (74-100) mg/dL Calcium 8.7 (8.5-10.1) mg/dL Total Bilirubin 0.3 (0.0-1.0) mg/dL AST 14 L (15-37) U/L ALT 25 (12-78) U/L Alkaline Phosphatase 92 (46-116) U/L Troponin I < 0.017 (0.000-0.060) ng/mL B-Natriuretic Peptide 178 H (0-125) pg/mL Total Protein 7.7 (6.4-8.2) g/dL Albumin 3.4 (3.4-5.0) g/dL Globulin 4.3 H (2.2-4.2) g/dL Albumin/Globulin Ratio 0.8 (0.8-2.0) Digoxin (0.5-2.00) ng/mL Ethyl Alcohol (<3.0) mg/dL SARS-CoV-2 RNA (MICHAEL) (NEGATIVE) 10/04/20 10/04/20 10/04/20 Range/Units 21:00 21:00 21:00 WBC (4.0-11.0) K/uL RBC (4.50-6.50) M/uL Hgb (13.0-18.0) g/dL Hct (40.0-54.0) % MCV (76-96) fL MCH (27.0-32.0) pg MCHC (31.0-35.0) g/dL RDW (11.0-16.0) % Plt Count (150-400) K/uL MPV (6.0-10.0) fL Neut % (Auto) (45.0-70.0) % Lymph % (Auto) (20.0-40.0) % [place] % (Auto) (3.0-10.0) % Eos % (Auto) (1.0-5.0) % Baso % (Auto) (0.0-0.5) % Neut # (Auto) (2.00-7.50) K/uL Lymph # (Auto) (1.50-4.00) K/uL [place] # (Auto) (0.20-0.80) K/uL Eos # (Auto) (0.04-0.40) K/uL Baso # (Auto) (0.02-0.10) K/uL PT (9.0-11.5) sec INR (1.0-3.5) Sodium (136-145) mmol/L Potassium (3.5-5.1) mmol/L Chloride (98-107) mmol/L Carbon Dioxide (21.0-32.0) mmol/L Anion Gap (5.0-15.0) mmol/L BUN (8-26) mg/dL Creatinine (0.70-1.30) mg/dL Est Cr Clr Drug Dosing mL/min Estimated GFR (MDRD) (>60) MLS/MIN BUN/Creatinine Ratio (6-25) Glucose (74-100) mg/dL Calcium (8.5-10.1) mg/dL Total Bilirubin (0.0-1.0) mg/dL AST (15-37) U/L ALT (12-78) U/L Alkaline Phosphatase (46-116) U/L Troponin I (0.000-0.060) ng/mL B-Natriuretic Peptide (0-125) pg/mL Total Protein (6.4-8.2) g/dL Albumin (3.4-5.0) g/dL Globulin (2.2-4.2) g/dL Albumin/Globulin Ratio (0.8-2.0) Digoxin < 0.2 L (0.5-2.00) ng/mL Ethyl Alcohol < 3.0 (<3.0) mg/dL SARS-CoV-2 RNA (MICHAEL) Negative (NEGATIVE) Meds: Medications Generic Name Dose Route Start Last Admin Trade Name Freq PRN Reason Stop Dose Admin Potassium Chloride 50 mls @ 50 mls/hr 10/04/20 22:00 10/04/20 22:28 Kcl 10 Meq In Water 50 Ml IV 10/04/20 23:59 50 mls/hr Q1H BLANCA Administration Discontinued Medications Generic Name Dose Route Start Last Admin Trade Name Freq PRN Reason Stop Dose Admin Potassium Chloride Confirm 10/04/20 21:32 10/04/20 23:44 Kcl 10 Meq In Water 50 Ml Administered 10/04/20 21:33 Not Given Dose 50 mls @ as directed .ROUTE .STK-MED ONE Potassium Chloride Confirm 10/04/20 22:30 10/04/20 23:44 Kcl 10 Meq In Water 50 Ml Administered 10/04/20 22:31 Not Given Dose 50 mls @ as directed .ROUTE .STK-MED ONE Sodium Chloride 1,000 mls @ 999 mls/hr 10/04/20 22:40 10/04/20 22:40 Normal Saline IV 10/04/20 23:40 999 mls/hr .BOLUS ONE Administration Potassium Chloride 40 meq 10/04/20 21:13 10/04/20 23:52 Klor-Con M20 PO 10/04/20 21:14 40 meq ONETIME ONE Administration Potassium Chloride 20 meq 10/04/20 21:14 Potassium Chloride IV 10/04/20 21:15 NOW STA Potassium Chloride Confirm 10/04/20 23:51 Klor-Con M20 Administered 10/04/20 23:52 Dose 40 meq .ROUTE .STK-MED ONE Departure - Departure Time of Disposition: 00:00 Disposition: Home, Self-Care 01 Condition: Good Clinical Impression: Hypokalemia, Orthostatic hypotension - Discharge Information *PRESCRIPTION DRUG MONITORING PROGRAM REVIEWED*: Not Applicable *COPY OF PRESCRIPTION DRUG MONITORING REPORT IN PATIENT CRISTAL: Not Applicable Instructions: Hypokalemia, Orthostatic Hypotension Referrals: PCP,None [Primary Care Provider] - Forms: ED Department Discharge Sepsis Event Note (ED) - Focused Exam Vital Signs: Vital Signs Temp Pulse Resp BP Pulse Ox 10/04/20 20:15 36.6 C 85 20 117/79 96 - My Orders Last 24 Hours: My Active Orders 10/04/20 20:16 EKG Documentation Completion [RC] ASDIRECTED 10/04/20 20:17 DRUG SCREEN, URINE [URCHEM] Stat UA RFX SURESH AND CULT IF INDIC [URIN] Stat 10/04/20 22:00 Potassium Chloride Riders [KCl 10 MEQ in Water 50 ML] 50 ml IV Q1H - Assessment/Plan Last 24 Hours: My Active Orders 10/04/20 20:16 EKG Documentation Completion [RC] ASDIRECTED 10/04/20 20:17 DRUG SCREEN, URINE [URCHEM] Stat UA RFX SURESH AND CULT IF INDIC [URIN] Stat 10/04/20 22:00 Potassium Chloride Riders [KCl 10 MEQ in Water 50 ML] 50 ml IV Q1H
[2020-10-04] MEDS ORDERED: Potassium Chloride 20 MEQ Tab.ER PO ONE (21:13)
[2020-10-04] MEDS ORDERED: Potassium Chloride 40 MEQ/20 ML SDV IV STA (21:14)
[2020-10-04] MEDS: Potassium Chloride Riders 50 ML IV SCH ×2 (21:32→22:28)
[2020-10-04] MEDS ORDERED: Potassium Chloride Riders 50 ML ONE ×2 (21:32→22:30)
--- NOTE | 2020-10-04 21:45 | CR ---
CLINICAL DATA: Syncope. AP CHEST, 04 OCTOBER 2020: Comparison is made to a prior exam dated 20 September 2020. There is subtle increased density in the left lung base that obscures the left hemidiaphragm, consistent with basilar atelectasis of infiltrate. The exam is otherwise unchanged. Job: [id number] [facility] [place] [facility]
[2020-10-04] MEDS ORDERED: Sodium Chloride 0.9% 1,000 ML IV ONE (22:40)
[2020-10-04] MEDS ORDERED: Potassium Chloride 20 MEQ Tab.ER ONE (23:51)
[2020-10-05 03:04] VITALS: BP 102/64; PULSE 86
== END 2020-10-05 00:02 | disposition home or self-care (01) ==
LOC: LB.ED 18:46
DX: E87.6 Hypokalemia (principal); I95.1 Orthostatic hypotension; I10 Essential (primary) hypertension; I48.91 Unspecified atrial fibrillation; E66.9 Obesity, unspecified; Z68.42 Body mass index [BMI] 45.0-49.9, adult; Z79.82 Long term (current) use of aspirin; Z79.899 Other long term (current) drug therapy; Z79.01 Long term (current) use of anticoagulants
CPT/HCPCS: 36415; 71045; 80053; 80162; 80307; 81003; 83880; 84484; 85025; 85610; 93005; 96365; 96366; 99284-25; A9270-GY; J3480; J7030; U0002

== ENCOUNTER 2021-02-23 09:51 | Emergency (ER) | payer MEDICARE ==
--- NOTE | 2021-02-23 11:47 | EDM.PDOC ---
ED HPI GENERAL MEDICAL PROBLEM - General Chief Complaint: Cardiovascular Problem Stated Complaint: SOB Time Seen by Provider: 02/23/21 11:15 History Limitations: Reports: No Limitations - History of Present Illness INITIAL COMMENTS - FREE TEXT/NARRATIVE: patient presented to the ER with a c/o progressive SOB and LEs edema over the last 2 weeks. h/o HTN, controlled afib, obesity and ALICIA. Denies CP or palpitations. Reports that he has been taking his BP meds. LEs edema started 2 weeks ago and progressively got worse. also reports progressive exertional dyspnea for 2 weeks. active smoker >20+ yrs has a CPAP but not compliant to it - reports it doesn't fit his face takes lasix at home no fever or chills.. no increase in cough reports + PND/orthopnea. last ECHO > 5 yrs ago per patient's report Onset: Gradual Duration: Week(s): (2) Location: Reports: Chest - Related Data Allergies Allergy/AdvReac Type Severity Reaction Status Date / Time No Known Allergies Allergy Verified 09/20/20 09:43 Home Meds: Home Meds Aspirin [Mirtha Chewable] 81 mg PO DAILY 04/12/17 [History] RX: Calcium Citrate/Vitamin D2 [Fredy-Citrate Plus Vitamin D Tab] 1 each PO DAILY 04/12/17 [History] RX: Omeprazole Magnesium [Prilosec Otc] 20 mg PO DAILY 04/12/17 [History] RX: Rivaroxaban [Xarelto] 20 mg PO DAILY 04/12/17 [History] RX: diazePAM [Valium] 5 mg PO ASDIRECTED PRN 04/12/17 [History] RX: dilTIAZem HCL [Diltiazem 24Hr ER (LA)] 180 mg PO DAILY 04/12/17 [History] atorvaSTATin Calcium [Atorvastatin Calcium] 80 mg PO DAILY 04/12/17 [History] RX: Potassium Chloride 10 meq PO DAILY #30 cap.er 04/06/20 [Rx] Apixaban [Eliquis] 5 mg PO BID 09/20/20 [History] Flecainide [Tambocor] 150 mg PO Q12H 09/20/20 [History] Gabapentin [Neurontin] 100 mg PO TID 09/20/20 [History] RX: Furosemide [Lasix] 40 mg PO BID 09/20/20 [History] RX: Lansoprazole 15 mg PO DAILY 09/20/20 [History] RX: Venlafaxine [Effexor] 100 mg PO DAILY 09/20/20 [History] Tamsulosin HCl [Flomax] 0.4 mg PO DAILY 09/20/20 [History] metOLazone [Zaroxolyn] 2.5 mg PO DAILY 09/20/20 [History] Past Medical History HEENT History: Reports: Cataract Cardiovascular History: Reports: Afib, Hypertension, SOB on Exertion Neurological History: Reports: Concussion Other Neuro History: unfollowed head injuries related to hockey Endocrine/Metabolic History: Reports: Obesity/BMI 30+ Oncologic (Cancer) History: Reports: Pancreatic Other Oncologic History: TURP and radiation Dermatologic History: Reports: Cellulitis, Eczema, Psoriasis - Infectious Disease History Infectious Disease History: Reports: Influenza, Rubella - Past Surgical History HEENT Surgical History: Reports: Cataract Surgery Cardiovascular Surgical History: Reports: None Endocrine Surgical History: Reports: None Neurological Surgical History: Reports: None Social & Family History - Family History Family Medical History: No Pertinent Family History - Caffeine Use Caffeine Use: Reports: None Other Caffeine Use: 3 cups/day ED ROS GENERAL - Review of Systems Review Of Systems: See Below Constitutional: Reports: No Symptoms HEENT: Reports: No Symptoms Respiratory: Reports: Shortness of Breath Cardiovascular: Reports: No Symptoms GI/Abdominal: Reports: No Symptoms Musculoskeletal: Reports: No Symptoms Skin: Reports: No Symptoms Neurological: Reports: No Symptoms Psychiatric: Reports: No Symptoms ED EXAM, GENERAL - Physical Exam Exam: See Below Exam Limited By: No Limitations General Appearance: Alert, WD/WN, No Apparent Distress Eye Exam: Bilateral Eye: EOMI Head: Atraumatic Neck: Normal Inspection Respiratory/Chest: No Respiratory Distress, Lungs Clear, Rales (mild b/l fine rhales) Cardiovascular: Normal Peripheral Pulses, Regular Rate, Rhythm, Other (+1 b/l pitting edema) GI/Abdominal: Normal Bowel Sounds Back Exam: Normal Inspection Extremities: Normal Inspection Neurological: Alert, Oriented #1 Interpretation EKG Date: 02/23/21 Rhythm: NSR Mcloud: Normal P-Wave: Present QRS: Normal ST-T: Normal QT: Normal Course - Orders/Labs/Meds Orders: Active Orders 24 hr Category Date Time Status EKG Documentation Completion [RC] ASDIRECTED Care 02/23/21 11:41 Active Chest 1V Frontal [CR] Stat Exams 02/23/21 11:41 Taken Labs: Laboratory Tests 02/23/21 02/23/21 02/23/21 Range/Units 11:35 11:41 11:41 WBC (4.0-11.0) K/uL RBC (4.50-6.50) M/uL Hgb (13.0-18.0) g/dL Hct (40.0-54.0) % MCV (76-96) fL MCH (27.0-32.0) pg MCHC (31.0-35.0) g/dL RDW (11.0-16.0) % Plt Count (150-400) K/uL MPV (6.0-10.0) fL D-Dimer, Quantitative 518 H (0-400) ng/mL Sodium 139 (136-145) mmol/L Potassium 4.3 (3.5-5.1) mmol/L Chloride 101 (98-107) mmol/L Carbon Dioxide 25.9 (21.0-32.0) mmol/L Anion Gap 16.4 H (5.0-15.0) mmol/L BUN 29 H (8-26) mg/dL Creatinine 1.74 H D (0.70-1.30) mg/dL Est Cr Clr Drug Dosing TNP Estimated GFR (MDRD) 39 L (>60) MLS/MIN BUN/Creatinine Ratio 16.7 (6-25) Glucose 108 H (74-100) mg/dL Calcium 9.3 (8.5-10.1) mg/dL Phosphorus (2.5-4.9) mg/dL Magnesium (1.8-2.4) mg/dL Total Bilirubin 0.3 (0.0-1.0) mg/dL AST 22 (15-37) U/L ALT 36 (12-78) U/L Alkaline Phosphatase 105 (46-116) U/L Troponin I (0.000-0.060) ng/mL B-Natriuretic Peptide 243 H D (0-125) pg/mL Total Protein 8.3 H (6.4-8.2) g/dL Albumin 3.9 (3.4-5.0) g/dL Globulin 4.4 H (2.2-4.2) g/dL Albumin/Globulin Ratio 0.9 (0.8-2.0) TSH, Ultra Sensitive (0.358-3.740) uIU/mL SARS CoV-2 RNA Rapid MICHAEL Negative 02/23/21 02/23/21 Range/Units 11:42 11:45 WBC 10.1 (4.0-11.0) K/uL RBC 4.06 L (4.50-6.50) M/uL Hgb 13.2 (13.0-18.0) g/dL Hct 40.1 (40.0-54.0) % MCV 99 H (76-96) fL MCH 32.5 H (27.0-32.0) pg MCHC 32.9 (31.0-35.0) g/dL RDW 14.9 (11.0-16.0) % Plt Count 314 (150-400) K/uL MPV 9.6 (6.0-10.0) fL D-Dimer, Quantitative (0-400) ng/mL Sodium (136-145) mmol/L Potassium (3.5-5.1) mmol/L Chloride (98-107) mmol/L Carbon Dioxide (21.0-32.0) mmol/L Anion Gap (5.0-15.0) mmol/L BUN (8-26) mg/dL Creatinine (0.70-1.30) mg/dL Est Cr Clr Drug Dosing Estimated GFR (MDRD) (>60) MLS/MIN BUN/Creatinine Ratio (6-25) Glucose (74-100) mg/dL Calcium (8.5-10.1) mg/dL Phosphorus 3.9 (2.5-4.9) mg/dL Magnesium 2.1 (1.8-2.4) mg/dL Total Bilirubin (0.0-1.0) mg/dL AST (15-37) U/L ALT (12-78) U/L Alkaline Phosphatase (46-116) U/L Troponin I < 0.017 (0.000-0.060) ng/mL B-Natriuretic Peptide (0-125) pg/mL Total Protein (6.4-8.2) g/dL Albumin (3.4-5.0) g/dL Globulin (2.2-4.2) g/dL Albumin/Globulin Ratio (0.8-2.0) TSH, Ultra Sensitive 2.968 (0.358-3.740) uIU/mL SARS CoV-2 RNA Rapid MICHAEL Meds: Medications Discontinued Medications Generic Name Dose Route Start Last Admin Trade Name Dianelys PRN Reason Stop Dose Admin Furosemide 40 mg 02/23/21 13:12 Furosemide 40 Mg/4 Ml Vial IVPUSH 02/23/21 13:13 NOW ONE Furosemide Confirm 02/23/21 13:26 Furosemide 40 Mg/4 Ml Vial Administered 02/23/21 13:27 Dose 40 mg .ROUTE .STK-MED ONE - Re-Assessments/Exams Free Text/Narrative Re-Assessment/Exam: EKG - NSR CXR - no e/o infiltrates, but e/o mild pulm congestion, possible pulm edema labs were ordered Trop WNL BNP elevated Cr - at baseline fro CKD3 IV lasix 40mg was given - large UOP didn't require any oxygenation or resp support reports he is breathing better,, and will work on quitting smoking, and being consistent with using CPAP will increase home dose of lasix from 40mg PO BID to TID Also, will return in 3 days to recheck in BMP patient admitted that he hasn't been doing well with CPAP and smoking,, but will change those habit after this. Departure - Departure Time of Disposition: 14:14 Disposition: Home, Self-Care 01 Condition: Good Clinical Impression: Obesity (BMI 30.0-34.9), Smoking greater than 10 pack years CHF (congestive heart failure), NYHA class II Qualifiers: Congestive heart failure type: combined Congestive heart failure chronicity: chronic Qualified Code(s): I50.42 - Chronic combined systolic (congestive) and diastolic (congestive) heart failure Sleep apnea Qualifiers: Sleep apnea type: obstructive Qualified Code(s): G47.33 - Obstructive sleep apnea (adult) (pediatric) - Discharge Information *PRESCRIPTION DRUG MONITORING PROGRAM REVIEWED*: Not Applicable *COPY OF PRESCRIPTION DRUG MONITORING REPORT IN PATIENT CRISTAL: Not Applicable Instructions: Coping with Quitting Smoking, Living With Sleep Apnea, Sleep Apnea, [id number] Referrals: PCP,None [Primary Care Provider] - Forms: ED Department Discharge Additional Instructions: - recommend to increase lasix from 40mg twice daily, to three times daily for 3 days - return to previous dose after 3 days\ - make sure to use CPAP daily - recommend smoking cessation - please follow up with your PCP in 3-5 days to discuss your symptoms and recheck on labs - return to the ER if any concerns or worsening of symptoms - Problem List & Annotations (1) CHF (congestive heart failure), NYHA class II SNOMED Code(s): 743080513, 391713663 Code(s): I50.9 - HEART FAILURE, UNSPECIFIED Status: Acute Priority: Medium Current Visit: Yes Qualifiers: Congestive heart failure type: combined Congestive heart failure chronicity: chronic Qualified Code(s): I50.42 - Chronic combined systolic (congestive) and diastolic (congestive) heart failure (2) Obesity (BMI 30.0-34.9) SNOMED Code(s): 267993799829532 Code(s): E66.9 - OBESITY, UNSPECIFIED Status: Chronic Priority: Medium Current Visit: Yes (3) Sleep apnea SNOMED Code(s): 15116741 Code(s): G47.30 - SLEEP APNEA, UNSPECIFIED Status: Chronic Priority: Medium Current Visit: Yes Qualifiers: Sleep apnea type: obstructive Qualified Code(s): G47.33 - Obstructive sleep apnea (adult) (pediatric) (4) Smoking greater than 10 pack years SNOMED Code(s): 55352477 Code(s): F17.210 - NICOTINE DEPENDENCE, CIGARETTES, UNCOMPLICATED Status: Chronic Priority: Medium Current Visit: Yes (5) Stage 3 chronic kidney disease SNOMED Code(s): 639270841 Code(s): N18.30 - CHRONIC KIDNEY DISEASE, STAGE 3 UNSPECIFIED Status: Chronic Priority: Medium Current Visit: Yes (6) SOB (shortness of breath) SNOMED Code(s): 289372543 Code(s): R06.02 - SHORTNESS OF BREATH Status: Acute Priority: Medium Current Visit: Yes - Problem List Review Problem List Initiated/Reviewed/Updated: Yes - My Orders Last 24 Hours: My Active Orders 02/23/21 11:41 EKG Documentation Completion [RC] ASDIRECTED Chest 1V Frontal [CR] Stat - Assessment/Plan Last 24 Hours: My Active Orders 02/23/21 11:41 EKG Documentation Completion [RC] ASDIRECTED Chest 1V Frontal [CR] Stat Plan: - recommend to increase lasix from 40mg twice daily, to three times daily for 3 days - return to previous dose after 3 days\ - make sure to use CPAP daily - recommend smoking cessation - please follow up with your PCP in 3-5 days to discuss your symptoms and recheck on labs - return to the ER if any concerns or worsening of symptoms
[2021-02-23] MEDS: Furosemide 40 MG/4 ML VIAL IVPUSH ONE (13:00)
[2021-02-23] MEDS ORDERED: Furosemide 40 MG/4 ML VIAL ONE (13:26)
[2021-02-23 14:43] VITALS: BP 119/82; PULSE 82
--- NOTE | 2021-02-23 22:54 | CR ---
CLINICAL DATA: SOB. AP CHEST, 23 FEBRUARY 2021: Comparison is made to a prior exam dated 04 October 2020. The heart and lungs are stable. No evidence of acute intrathoracic disease. Job: [id number] [facility]
== END 2021-02-23 14:32 | disposition home or self-care (01) ==
LOC: LB.ED 09:51
DX: I13.0 Hypertensive heart and chronic kidney disease with heart failure and stage 1 through stage 4 chronic kidney disease, or unspecified chronic kidney disease (principal); I50.42 Chronic combined systolic (congestive) and diastolic (congestive) heart failure; N18.31 Chronic kidney disease, stage 3a; I48.91 Unspecified atrial fibrillation; E66.9 Obesity, unspecified; F17.200 Nicotine dependence, unspecified, uncomplicated; G47.33 Obstructive sleep apnea (adult) (pediatric); Z79.82 Long term (current) use of aspirin; Z79.01 Long term (current) use of anticoagulants; Z79.899 Other long term (current) drug therapy; Z20.822 Contact with and (suspected) exposure to COVID-19
CPT/HCPCS: 36415; 71045; 80053; 83735; 83880; 84100; 84443; 84484; 85027; 85379; 93005; 96374; 99285; J1940; U0002; 99283

== ENCOUNTER 2022-03-20 09:31 | Emergency (ER) | payer MEDICARE ==
[2022-03-20 10:41] VITALS: BP 118/71; PULSE 75
== END 2022-03-20 10:05 | disposition home or self-care (01) ==
LOC: LB.ED 09:31
DX: L76.22 Postprocedural hemorrhage of skin and subcutaneous tissue following other procedure (principal); S81.812A Laceration without foreign body, left lower leg, initial encounter; I48.91 Unspecified atrial fibrillation; I10 Essential (primary) hypertension; J44.9 Chronic obstructive pulmonary disease, unspecified; E66.9 Obesity, unspecified; Z79.82 Long term (current) use of aspirin; Z79.01 Long term (current) use of anticoagulants; Z68.36 Body mass index [BMI] 36.0-36.9, adult; Z79.899 Other long term (current) drug therapy; W26.8XXA Contact with other sharp object(s), not elsewhere classified, initial encounter
CPT/HCPCS: 12001; 99281; 99283-25

== ENCOUNTER 2023-03-12 11:42 | Emergency (ER) | payer MEDICARE ==
[2023-03-12 11:55] VITALS: BP 131/68; PULSE 62
[2023-03-12] MEDS: oxyCODONE 5 MG Tab PO ONE (12:22)
[2023-03-12] MEDS: oxyCODONE 5 MG Tab ONE (12:26)
[2023-03-12] MEDS ORDERED: oxyCODONE 5 MG Tab ONE (12:30)
== END 2023-03-12 12:35 | disposition home or self-care (01) ==
LOC: LB.ED 11:42
DX: M96.831 Postprocedural hemorrhage of a musculoskeletal structure following other procedure (principal); I48.91 Unspecified atrial fibrillation; J44.1 Chronic obstructive pulmonary disease with (acute) exacerbation; I10 Essential (primary) hypertension; E66.9 Obesity, unspecified; Z79.01 Long term (current) use of anticoagulants; Z79.899 Other long term (current) drug therapy; Z72.0 Tobacco use; Z68.41 Body mass index [BMI] 40.0-44.9, adult
CPT/HCPCS: 99283; A9270-GY

== ENCOUNTER 2023-03-26 12:48 | Emergency (ER) | payer MEDICARE ==
[2023-03-26 13:01] VITALS: BP 176/86; PULSE 88
[2023-03-26] MEDS: oxyCODONE 5 MG Tab PO ONE (13:05)
[2023-03-26] MEDS: fentaNYL 100 MCG/2 ML SDV IM ONE (13:08)
[2023-03-26] MEDS: oxyCODONE 5 MG Tab ONE (13:25)
[2023-03-26] MEDS: fentaNYL 100 MCG/2 ML SDV ONE (13:25)
== END 2023-03-26 13:13 | disposition home or self-care (01) ==
LOC: LB.ED 12:48
DX: G89.18 Other acute postprocedural pain (principal); M25.561 Pain in right knee; I10 Essential (primary) hypertension; I48.91 Unspecified atrial fibrillation; J44.9 Chronic obstructive pulmonary disease, unspecified; E66.9 Obesity, unspecified; Z68.41 Body mass index [BMI] 40.0-44.9, adult; Z98.890 Other specified postprocedural states; Z79.01 Long term (current) use of anticoagulants; Z79.899 Other long term (current) drug therapy; Z47.1 Aftercare following joint replacement surgery; Z96.653 Presence of artificial knee joint, bilateral
CPT/HCPCS: 73560-50; 96372; 99283; A9270-GY; J3010

== ENCOUNTER 2024-06-19 13:42 | Emergency (ER) | payer MEDICARE ==
[2024-06-19 14:56] LABS: BASOPHILS ABSOLUTE AUTO 0.05 K/uL (0.02-0.10); BASOPHILS PERCENT AUTO 0.6 % (0.0-0.5); EOSINOPHILS ABSOLUTE AUTO 0.28 K/uL (0.04-0.40); EOSINOPHILS PERCENT AUTO 3.2 % (1.0-5.0); HEMATOCRIT 39.2 % (40.0-54.0); HEMOGLOBIN 13.4 g/dL (13.0-18.0); LYMPHOCYTES ABSOLUTE AUTO 2.06 K/uL (1.50-4.00); LYMPHOCYTES PERCENT AUTO 23.6 % (20.0-40.0); MEAN CORPUSCULAR HEMOGLOBIN 32.3 pg (27.0-32.0); MEAN CORPUSCULAR HGB CONC 34.2 g/dL (31.0-35.0); MEAN CORPUSCULAR VOLUME 95 fL (76-96); MONOCYTES ABSOLUTE AUTO 0.64 K/uL (0.20-0.80); MONOCYTES PERCENT AUTO 7.3 % (3.0-10.0); NEUTROPHILS ABSOLUTE AUTO 5.69 K/uL (2.00-7.50); NEUTROPHILS PERCENT AUTO 65.3 % (45.0-70.0); PLATELET COUNT,PLT 234 K/uL (150-400); RED BLOOD CELL COUNT 4.15 M/uL (4.50-6.50); RED CELL DISTRIBUTION WIDTH 14.3 % (11.0-16.0); WHITE BLOOD CELL COUNT,WBC 8.7 K/uL (4.0-11.0)
[2024-06-19 15:18] LABS: A/G RATIO 0.9 (0.8-2.0); ALBUMIN 3.5 g/dL (3.4-5.0); BILIRUBIN TOTAL 0.4 mg/dL (0.0-1.0); CALCIUM 8.4 mg/dL (8.5-10.1); CARBON DIOXIDE,CO2 26.7 mmol/L (21.0-32.0); CREATININE 1.67 mg/dL (0.70-1.30); EST CRCL DRUG DOSING (CG) 43.84 mL/min; MAGNESIUM 2.1 mg/dL (1.8-2.4); POTASSIUM,K 3.7 mmol/L (3.5-5.1); PROTEIN TOTAL,TP 7.3 g/dL (6.4-8.2); TROPONIN I HIGH SENSITIVITY 5.7 pg/ml (<=60.4)
[2024-06-19 15:29] VITALS: BP 110/72; PULSE 74
== END 2024-06-19 14:29 | disposition home or self-care (01) ==
LOC: LB.ED 13:42
DX: R00.0 Tachycardia, unspecified (principal); J44.9 Chronic obstructive pulmonary disease, unspecified; E66.9 Obesity, unspecified; Z79.899 Other long term (current) drug therapy; Z79.890 Hormone replacement therapy; Z68.41 Body mass index [BMI] 40.0-44.9, adult
CPT/HCPCS: 36415; 80053; 83735; 83880; 84484; 85025; 93005; 99285

== ENCOUNTER 2024-08-30 12:10 | Emergency (ER) | payer MEDICARE ==
[2024-08-30] MEDS ORDERED: Sodium Chloride 0.9% 10 ML Syringe FLUSH PRN (12:24)
[2024-08-30 12:47] LABS: HEMATOCRIT 37.2 % (40.0-54.0); HEMOGLOBIN 12.6 g/dL (13.0-18.0); MEAN CORPUSCULAR HGB CONC 33.9 g/dL (31.0-35.0); MEAN PLATELET VOLUME 9.5 fL (6.0-10.0); RED BLOOD CELL COUNT 3.94 M/uL (4.50-6.50); RED CELL DISTRIBUTION WIDTH 13.9 % (11.0-16.0); WHITE BLOOD CELL COUNT,WBC 9.6 K/uL (4.0-11.0)
[2024-08-30 13:24] LABS: ALBUMIN 3.3 g/dL (3.4-5.0); BUN/CREATININE RATIO 13.9 (6-25); CALCIUM 8.3 mg/dL (8.5-10.1); CARBON DIOXIDE,CO2 23.5 mmol/L (21.0-32.0); CREATININE 1.51 mg/dL (0.70-1.30); EST CRCL DRUG DOSING (CG) 48.48 mL/min; POTASSIUM,K 3.5 mmol/L (3.5-5.1); PROTEIN TOTAL,TP 7.3 g/dL (6.4-8.2)
[2024-08-30 13:25] LABS: A/G RATIO 0.8 (0.8-2.0); BILIRUBIN TOTAL 0.2 mg/dL (0.0-1.0); MAGNESIUM 2.1 mg/dL (1.8-2.4); TROPONIN I HIGH SENSITIVITY 5.1 pg/ml (<=60.4)
[2024-08-30] MEDS: Acetaminophen/HYDROcodone 325-5 MG Tab PO ONE (14:08)
[2024-08-30] MEDS: Orphenadrine 60 MG/2 ML Inj IM ONE (15:09)
[2024-08-30 16:16] VITALS: BP 112/52; PULSE 60
[2024-09-01] MEDS: Orphenadrine 60 MG/2 ML Inj ONE (08:10)
== END 2024-08-30 15:33 | disposition home or self-care (01) ==
LOC: LB.ED 12:10
DX: R07.89 Other chest pain (principal); M62.830 Muscle spasm of back; I10 Essential (primary) hypertension; J44.9 Chronic obstructive pulmonary disease, unspecified; E66.9 Obesity, unspecified; Z68.38 Body mass index [BMI] 38.0-38.9, adult; Z79.899 Other long term (current) drug therapy; Z79.82 Long term (current) use of aspirin; Z79.890 Hormone replacement therapy
CPT/HCPCS: 36415; 71045; 80053; 83735; 83880; 84484; 85027; 85379; 93005; 93010; 96372; 99284; 99285; A9270-GY; J2360

== ENCOUNTER 2024-10-04 13:39 | Emergency (ER) | payer MEDICARE ==
[2024-10-04 14:33] LABS: BASOPHILS ABSOLUTE AUTO 0.03 K/uL (0.02-0.10); BASOPHILS PERCENT AUTO 0.3 % (0.0-0.5); EOSINOPHILS ABSOLUTE AUTO 0.43 K/uL (0.04-0.40); EOSINOPHILS PERCENT AUTO 4.2 % (1.0-5.0); HEMATOCRIT 37.4 % (40.0-54.0); HEMOGLOBIN 13.1 g/dL (13.0-18.0); LYMPHOCYTES ABSOLUTE AUTO 1.78 K/uL (1.50-4.00); LYMPHOCYTES PERCENT AUTO 17.4 % (20.0-40.0); MEAN CORPUSCULAR HEMOGLOBIN 33.1 pg (27.0-32.0); MEAN CORPUSCULAR VOLUME 94 fL (76-96); MEAN PLATELET VOLUME 9.7 fL (6.0-10.0); MONOCYTES ABSOLUTE AUTO 0.81 K/uL (0.20-0.80); MONOCYTES PERCENT AUTO 7.9 % (3.0-10.0); NEUTROPHILS ABSOLUTE AUTO 7.18 K/uL (2.00-7.50); NEUTROPHILS PERCENT AUTO 70.2 % (45.0-70.0); PLATELET COUNT,PLT 234 K/uL (150-400); RED BLOOD CELL COUNT 3.96 M/uL (4.50-6.50); RED CELL DISTRIBUTION WIDTH 13.6 % (11.0-16.0); WHITE BLOOD CELL COUNT,WBC 10.2 K/uL (4.0-11.0)
[2024-10-04 14:35] LABS: APPEARANCE,URINE CLEAR (CLEAR); COLOR,URINE YELLOW; PH,URINE 5.5 (5.0-8.0)
[2024-10-04 14:36] LABS: BILIRUBIN,URINE NEGATIVE (NEGATIVE); GLUCOSE,URINE NEGATIVE (NEGATIVE); KETONES,URINE NEGATIVE (NEGATIVE); LEUKOCYTE ESTERASE,URINE NEGATIVE (NEGATIVE); NITRITE,URINE NEGATIVE (NEGATIVE); OCCULT BLOOD,URINE NEGATIVE (NEGATIVE); PROTEIN,URINE NEGATIVE (NEGATIVE); UROBILINOGEN,URINE 0.2 E.U./dL (0.2-1.0)
[2024-10-04 14:54] LABS: A/G RATIO 0.8 (0.8-2.0); ALBUMIN 3.5 g/dL (3.4-5.0); ANION GAP 10.6 mmol/L (5.0-15.0); BILIRUBIN TOTAL 0.4 mg/dL (0.0-1.0); BUN/CREATININE RATIO 13.6 (6-25); CALCIUM 8.7 mg/dL (8.5-10.1); CARBON DIOXIDE,CO2 27.3 mmol/L (21.0-32.0); CREATININE 1.62 mg/dL (0.70-1.30); EST CRCL DRUG DOSING (CG) 45.88 mL/min; POTASSIUM,K 3.9 mmol/L (3.5-5.1); PROTEIN TOTAL,TP 7.7 g/dL (6.4-8.2)
[2024-10-04 15:18] VITALS: BP 137/67; PULSE 60
== END 2024-10-04 16:10 | disposition home or self-care (01) ==
LOC: LB.ED 13:39
DX: R19.7 Diarrhea, unspecified (principal); I48.91 Unspecified atrial fibrillation; I10 Essential (primary) hypertension; E66.9 Obesity, unspecified; Z79.82 Long term (current) use of aspirin; Z79.01 Long term (current) use of anticoagulants; Z79.890 Hormone replacement therapy; Z79.899 Other long term (current) drug therapy
CPT/HCPCS: 36415; 80053; 81003; 85025; 87045; 87046; 87427; 87493; 99284

== ENCOUNTER 2025-03-10 13:49 | Emergency (ER) | payer MEDICARE ==
[2025-03-10] MEDS: Sodium Chloride 0.9% 1,000 ML IV ONE (14:45)
[2025-03-10 14:46] LABS: BASOPHILS ABSOLUTE AUTO 0.06 K/uL (0.02-0.10); BASOPHILS PERCENT AUTO 0.5 % (0.0-0.5); EOSINOPHILS ABSOLUTE AUTO 0.29 K/uL (0.04-0.40); EOSINOPHILS PERCENT AUTO 2.4 % (1.0-5.0); HEMATOCRIT 37.6 % (40.0-54.0); HEMOGLOBIN 12.9 g/dL (13.0-18.0); LYMPHOCYTES ABSOLUTE AUTO 2.33 K/uL (1.50-4.00); LYMPHOCYTES PERCENT AUTO 18.9 % (20.0-40.0); MEAN CORPUSCULAR HEMOGLOBIN 33.1 pg (27.0-32.0); MEAN CORPUSCULAR HGB CONC 34.3 g/dL (31.0-35.0); MEAN CORPUSCULAR VOLUME 96 fL (76-96); MEAN PLATELET VOLUME 9.9 fL (6.0-10.0); MONOCYTES ABSOLUTE AUTO 1.07 K/uL (0.20-0.80); MONOCYTES PERCENT AUTO 8.7 % (3.0-10.0); NEUTROPHILS ABSOLUTE AUTO 8.58 K/uL (2.00-7.50); NEUTROPHILS PERCENT AUTO 69.5 % (45.0-70.0); PLATELET COUNT,PLT 295 K/uL (150-400); RED CELL DISTRIBUTION WIDTH 13.8 % (11.0-16.0); WHITE BLOOD CELL COUNT,WBC 12.3 K/uL (4.0-11.0)
[2025-03-10] MEDS: Diltiazem 50 MG/10 ML SDV IVPUSH ONE (14:47)
[2025-03-10 15:07] LABS: A/G RATIO 0.9 (0.8-2.0); ALBUMIN 3.5 g/dL (3.4-5.0); ANION GAP 12.4 mmol/L (5.0-15.0); BILIRUBIN TOTAL 0.5 mg/dL (0.0-1.0); BUN/CREATININE RATIO 17.3 (6-25); CALCIUM 9.3 mg/dL (8.5-10.1); CARBON DIOXIDE,CO2 27.1 mmol/L (21.0-32.0); CREATININE 1.56 mg/dL (0.70-1.30); EST CRCL DRUG DOSING (CG) 46.26 mL/min; MAGNESIUM 2.2 mg/dL (1.8-2.4); POTASSIUM,K 3.5 mmol/L (3.5-5.1); PROTEIN TOTAL,TP 7.6 g/dL (6.4-8.2); TROPONIN I HIGH SENSITIVITY 6.1 pg/ml (<=60.4)
[2025-03-10 15:09] LABS: INR 1.1 (1.0-3.5); PTT,PARTIAL THROMBOPLSTIN TIME 32.1 SECONDS (24.4-33.2)
[2025-03-10 15:18] LABS: PROTHROMBIN TIME 11.1 sec (9.0-11.5)
[2025-03-10] MEDS ORDERED: Diltiazem 25 MG/5 ML SDV IVPUSH ONE (15:52)
[2025-03-10] MEDS: Diltiazem 100 MG in Sodium Chloride 0.9% 100 ML IV SCH (16:17)
[2025-03-10] MEDS: Sodium Chloride 0.9% 1,000 ML IV SCH (16:50)
[2025-03-10] MEDS: Sotalol 80 MG Tab PO SCH (19:26)
[2025-03-10] MEDS: GI Cocktail Oral Solution 30 ML PO ONE (19:26)
[2025-03-10 22:47] VITALS: BP 141/81; PULSE 81
== END 2025-03-10 19:32 | disposition home or self-care (01) ==
LOC: LB.ED 13:49
DX: I48.20 Chronic atrial fibrillation, unspecified (principal); I10 Essential (primary) hypertension; I48.91 Unspecified atrial fibrillation; E03.9 Hypothyroidism, unspecified; Z95.0 Presence of cardiac pacemaker; Z79.01 Long term (current) use of anticoagulants; Z79.899 Other long term (current) drug therapy; Z79.890 Hormone replacement therapy; Z79.82 Long term (current) use of aspirin
CPT/HCPCS: 36415; 80053; 83735; 84484; 85025; 85610; 85730; 93005; 96361; 96365; 96366; 96376; 99283; A9270; J3490; J7030; 93010; 99284

== ENCOUNTER 2025-08-23 15:23 | Emergency (ER) | payer MEDICARE ==
[2025-08-23 15:41] VITALS: PULSE 80
[2025-08-23] MEDS ORDERED: Sodium Chloride 0.9% 10 ML Syringe FLUSH PRN (15:41)
[2025-08-23 15:53] LABS: BASOPHILS ABSOLUTE AUTO 0.08 K/uL (0.02-0.10); BASOPHILS PERCENT AUTO 0.7 % (0.0-0.5); EOSINOPHILS ABSOLUTE AUTO 0.56 K/uL (0.04-0.40); EOSINOPHILS PERCENT AUTO 5.2 % (1.0-5.0); LYMPHOCYTES ABSOLUTE AUTO 2.47 K/uL (1.50-4.00); LYMPHOCYTES PERCENT AUTO 22.8 % (20.0-40.0); MEAN PLATELET VOLUME 9.7 fL (6.0-10.0); MONOCYTES ABSOLUTE AUTO 1.02 K/uL (0.20-0.80); MONOCYTES PERCENT AUTO 9.4 % (3.0-10.0); NEUTROPHILS ABSOLUTE AUTO 6.71 K/uL (2.00-7.50); NEUTROPHILS PERCENT AUTO 61.9 % (45.0-70.0); PLATELET COUNT,PLT 266 K/uL (150-400); RED BLOOD CELL COUNT 4.12 M/uL (4.50-6.50); RED CELL DISTRIBUTION WIDTH 13.9 % (11.0-16.0); WHITE BLOOD CELL COUNT,WBC 10.8 K/uL (4.0-11.0)
[2025-08-23 16:12] LABS: A/G RATIO 0.9 (0.8-2.0); ALANINE AMINOTRANSFERASE,ALT 23.0 U/L (12-78); ASPARTATE AMNIOTRANSFERASE,AST 14.0 U/L (15-37); BILIRUBIN TOTAL 0.3 mg/dL (0.0-1.0); BLOOD UREA NITROGEN,BUN 35.0 mg/dL (8-26); CARBON DIOXIDE,CO2 24.6 mmol/L (21.0-32.0); CHLORIDE,CL 101.0 mmol/L (98-107); CREATININE 1.74 mg/dL (0.70-1.30); EST CRCL DRUG DOSING (CG) 41.47 mL/min; ESTIMATED GFR 41.0 mL/min (>60); GLUCOSE RANDOM 98.0 mg/dL (74-100); POTASSIUM,K 3.6 mmol/L (3.5-5.1); PROTEIN TOTAL,TP 7.8 g/dL (6.4-8.2); SODIUM,NA 137.0 mmol/L (136-145); TROPONIN I HIGH SENSITIVITY 5.7 pg/ml (<=60.4)
[2025-08-23] MEDS: LORazepam 2 MG/ML SDV IVPUSH ONE (17:30)
[2025-08-23 17:33] LABS: APPEARANCE,URINE CLEAR (CLEAR); GLUCOSE,URINE NEGATIVE (NEGATIVE); OCCULT BLOOD,URINE NEGATIVE (NEGATIVE)
[2025-08-23 18:17] VITALS: BP 120/70
== END 2025-08-23 17:45 | disposition home or self-care (01) ==
LOC: LB.ED 15:23
DX: R07.9 Chest pain, unspecified (principal); I10 Essential (primary) hypertension; F17.200 Nicotine dependence, unspecified, uncomplicated
CPT/HCPCS: 36415; 71045; 80053; 81003; 83735; 84484; 85025; 85379; 93005; 96374; 99285-25; J2060